=== PATIENT | female | born 1950 | race Caucasian/White ===

== ENCOUNTER → 2016-11-27 | Outpatient (REF) | payer MEDICARE, BC, OTHER ==
[~2016-11-27] MED LIST: ALDA25TA PO; ATEN25TA PO; BIOT50004 PO; CALC600T57 PO; FISH5CAP PO; FOLI1TAB2 PO; MAGN250T9 PO; MULT1TAB15 PO; OMEP40CA2 PO; OSTETAB2 PO; RED1CAP5 PO; VITA-130 PO; VITA400C2 PO
== END ==
LOC: M SFHCPLAZ 17:01
PROVIDERS: ATTEND Dermatology
DX: C44.311 Basal cell carcinoma of skin of nose (principal)

== ENCOUNTER → 2016-11-28 | Outpatient (CLI) | payer MEDICARE, BC, OTHER ==
[~2016-11-28] VITALS: Ht 160 cm; Wt 78.0 kg
[~2016-11-28] MED LIST changes: +LIDOCAINE 2% INJ 100 MG/5 ML SDV (FOR ANES.) As Ordered ONE; +NS 1,000 ML IV SCH; +PROPOFOL 500 MG/50 ML VIAL As Ordered ONE
--- NOTE | 2016-11-28 12:39 | ROOR ---
Patient Name: Elza Bunch Procedure Date: 11/28/2016 12:20 PM Date of : 1950 Age: 66 Room: [facility] Gender: Female Note Status: Finalized Procedure: Upper GI endoscopy + Balloon Dilatation Indications: Dysphagia Providers: Marbin Calzada MD Referring MD: Carl Dickerson MD Requesting Provider: Medicines: Monitored Anesthesia Care Complications: No immediate complications. Procedure: Pre-Anesthesia Assessment: - The heart rate, respiratory rate, oxygen saturations, blood pressure, adequacy of pulmonary ventilation, and response to care were monitored throughout the procedure. The Endoscope was introduced through the mouth, and advanced to the second part of duodenum. The upper GI endoscopy was accomplished without difficulty. The patient tolerated the procedure well. Findings: The Z-line was regular and was found 35 cm from the incisors. The exam of the esophagus was otherwise normal. A TTS dilator was passed through the scope. Dilation with an 18-19-20 mm balloon dilator was performed to 20 mm in the lower third of the esophagus. No other significant abnormalities were identified in a careful examination of the stomach. The exam of the duodenum was otherwise normal. Impression: - Z-line regular, 35 cm from the incisors. - Dilation performed in the lower third of the esophagus. - No specimens collected. - The examination was otherwise normal. Recommendation: - Patient has a contact number available for emergencies. The signs and symptoms of potential delayed complications were discussed with the patient. Return to normal activities tomorrow. Written discharge instructions were provided to the patient. - High fiber diet. - Continue present medications. - Follow an antireflux regimen. - Return to referring physician. - The findings and recommendations were discussed with the patient's family. Marbin Calzada MD Marbin Calzada MD 11/28/2016 12:38:34 PM This report has been signed electronically. Number of Addenda: 0 Note Initiated On: 11/28/2016 12:20 PM Estimated Blood Loss: Estimated blood loss: none.
--- NOTE | 2016-11-28 13:06 | ROOR ---
Patient Name: Elza Bunch Procedure Date: 11/28/2016 12:21 PM Date of : 1950 Age: 66 Room: [facility] Gender: Female Note Status: Finalized Procedure: Colonoscopy to Cecum + Cold Snare Polypectomy + Hemoclips Indications: Colon cancer screening in patient at increased risk: Colorectal cancer in father, High risk colon cancer surveillance: Personal history of colonic polyps, Last colonoscopy: 2011 Providers: Marbin Calzada MD Referring MD: Carl Dickerson MD Requesting Provider: Medicines: Monitored Anesthesia Care Complications: No immediate complications. Procedure: Pre-Anesthesia Assessment: - The heart rate, respiratory rate, oxygen saturations, blood pressure, adequacy of pulmonary ventilation, and response to care were monitored throughout the procedure. The Colonoscope was introduced through the anus and advanced to the cecum, identified by appendiceal orifice and ileocecal valve. The colonoscopy was performed without difficulty. The patient tolerated the procedure well. The quality of the bowel preparation was excellent. Findings: The perianal and digital rectal examinations were normal. Non-bleeding internal hemorrhoids were found during retroflexion. The hemorrhoids were small and Grade I (internal hemorrhoids that do not prolapse). A medium polyp was found at 10 cm proximal to the anus. The polyp was sessile. The polyp was removed with a cold snare. Resection and retrieval were complete. To prevent bleeding after the polypectomy, two hemostatic clips were successfully placed (MR conditional). There was no bleeding at the end of the procedure. A small polyp was found at 30 cm proximal to the anus. The polyp was sessile. The polyp was removed with a cold snare. Resection and retrieval were complete. A medium polyp was found in the mid ascending colon. The polyp was sessile. The polyp was removed with a cold snare. Resection and retrieval were complete. To prevent bleeding after the polypectomy, two hemostatic clips were successfully placed (MR conditional). There was no bleeding at the end of the procedure. The exam was otherwise without abnormality on direct and retroflexion views. Impression: - Non-bleeding internal hemorrhoids. - One medium polyp at 10 cm proximal to the anus, removed with a cold snare. Resected and retrieved. Clips (MR conditional) were placed. - One small polyp at 30 cm proximal to the anus, removed with a cold snare. Resected and retrieved. - One medium polyp in the mid ascending colon, removed with a cold snare. Resected and retrieved. Clips (MR conditional) were placed. - The examination was otherwise normal on direct and retroflexion views. - The exam was otherwise normal to the cecum. Recommendation: - Patient has a contact number available for emergencies. The signs and symptoms of potential delayed complications were discussed with the patient. Return to normal activities tomorrow. Written discharge instructions were provided to the patient. - High fiber diet. - Discharge patient to home. - Continue present medications. - Await pathology results. - Repeat colonoscopy for surveillance based on pathology results. - Return to referring physician. - Telephone GI clinic for pathology results in 1 week. - The findings and recommendations were discussed with the patient's family. Marbin Calzada MD Marbin Calzada MD 11/28/2016 1:06:17 PM This report has been signed electronically. Number of Addenda: 0 Note Initiated On: 11/28/2016 12:21 PM Estimated Blood Loss: Estimated blood loss: none.
[2016-11-28 13:33] VITALS: BP 175/92
== END ==
LOC: M OPP 11:31
PROVIDERS: ATTEND Internal Medicine Gastroenterology
DX: Z12.11 Encounter for screening for malignant neoplasm of colon (principal); Z86.010 Personal history of colon polyps; Z80.0 Family history of malignant neoplasm of digestive organs; K64.0 First degree hemorrhoids; D12.2 Benign neoplasm of ascending colon; R13.10 Dysphagia, unspecified; K21.9 Gastro-esophageal reflux disease without esophagitis; I10 Essential (primary) hypertension; Z87.891 Personal history of nicotine dependence; Z79.899 Other long term (current) drug therapy; Z91.040 Latex allergy status

== ENCOUNTER → 2016-12-05 | Outpatient (CLI) | payer MEDICARE, BC, OTHER ==
[~2016-12-05] MED LIST changes: -LIDOCAINE 2% INJ 100 MG/5 ML SDV (FOR ANES.) As Ordered ONE; -NS 1,000 ML IV SCH; -PROPOFOL 500 MG/50 ML VIAL As Ordered ONE
[2016-12-05 11:10] LABS: ANION GAP 8 MEQ/L (8-16); BLOOD UREA NITROGEN 19 MG/DL (7-18); CALCIUM LEVEL 9.9 MG/DL (8.8-10.2); CARBON DIOXIDE LEVEL 30 MEQ/L (21-32); CHLORIDE LEVEL 106 MEQ/L (98-107); CREATININE FOR GFR 0.93 MG/DL (0.55-1.02); GLOMERULAR FILTRATION RATE > 60.0 (>45); GLUCOSE, FASTING 107 MG/DL (80-110); POTASSIUM SERUM 4.5 MEQ/L (3.5-5.1); SODIUM LEVEL 144 MEQ/L (136-145)
--- NOTE | 2016-12-06 09:04 | ECGEPIP ---
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
== END ==
LOC: M LAB 10:22
PROVIDERS: ATTEND Ophthalmology
DX: H25.13 Age-related nuclear cataract, bilateral (principal)

== ENCOUNTER → 2017-02-26 | Outpatient (REF) | payer MEDICARE, OTHER | LOC: M SFHCPLAZ 10:09 | PROVIDERS: ATTEND Dermatology | DX: C44.311 Basal cell carcinoma of skin of nose (principal) ==

== ENCOUNTER → 2017-03-29 | Outpatient (REF) | payer MEDICARE, OTHER ==
[2017-03-29 14:20] LABS: ALBUMIN 3.7 GM/DL (3.2-5.2); ALBUMIN/GLOBULIN RATIO 1.54 (1.00-1.93); ALKALINE PHOSPHATASE 60 U/L (45-117); ALT/SGPT 29 U/L (12-78); ANION GAP 7 MEQ/L (8-16); AST/SGOT 18 U/L (15-37); BILIRUBIN,TOTAL 0.4 MG/DL (0.2-1.0); BLOOD UREA NITROGEN 17 MG/DL (7-18); CALCIUM LEVEL 8.7 MG/DL (8.8-10.2); CARBON DIOXIDE LEVEL 27 MEQ/L (21-32); CHLORIDE LEVEL 110 MEQ/L (98-107); CREATININE FOR GFR 0.78 MG/DL (0.55-1.02); FREE T4 1.01 NG/DL (0.76-1.46); GLOMERULAR FILTRATION RATE > 60.0 (>45); GLUCOSE, FASTING 89 MG/DL (80-110); POTASSIUM SERUM 4.2 MEQ/L (3.5-5.1); SODIUM LEVEL 144 MEQ/L (136-145); TOTAL PROTEIN 6.1 GM/DL (6.4-8.2)
[2017-03-30 09:20] LABS: CORTISOL AM 12.9 UG/DL (4.3-22.4)
[2017-04-01 10:34] LABS: ESTRADIOL < 19.0 PG/ML; FOLLICLE STIMULATING HORMONE 30.9 mIU/mL; PROGESTERONE < 0.2 NG/ML
[2017-04-02 00:06] LABS: ESTRONE SERUM 37 pg/mL (.); SEX HORMONE BINDING GLOBULIN 61.6 nmol/L (17.3-125.0)
== END ==
LOC: M LAB REF 12:57
PROVIDERS: ATTEND Obstetrics & Gynecology
DX: N95.9 Unspecified menopausal and perimenopausal disorder (principal); Z79.899 Other long term (current) drug therapy

== ENCOUNTER 2018-02-26 07:06 | Day surgery (SDC) | payer MEDICARE, BC, OTHER ==
[2018-02-26] MEDS: NS 1,000 ML IV (07:23)
[2018-02-26] MEDS ORDERED: LIDOCAINE 2% INJ 100 MG/5 ML SDV (FOR ANES.) As Ordered (08:11)
[2018-02-26] MEDS ORDERED: PROPOFOL 200 MG/20 ML VIAL As Ordered ×2 (08:11)
== END 2018-02-26 09:15 | disposition home or self-care (01) ==
LOC: M OPP 07:06
DX: Z09 Encounter for follow-up examination after completed treatment for conditions other than malignant neoplasm (principal); D49.0 Neoplasm of unspecified behavior of digestive system; D12.0 Benign neoplasm of cecum; D12.2 Benign neoplasm of ascending colon; I10 Essential (primary) hypertension; K21.9 Gastro-esophageal reflux disease without esophagitis; K64.8 Other hemorrhoids; Z86.19 Personal history of other infectious and parasitic diseases; M19.90 Unspecified osteoarthritis, unspecified site; Z78.0 Asymptomatic menopausal state; Z91.040 Latex allergy status; Z79.899 Other long term (current) drug therapy; Z80.0 Family history of malignant neoplasm of digestive organs; Z80.3 Family history of malignant neoplasm of breast; Z87.891 Personal history of nicotine dependence
CPT/HCPCS: 45380

== ENCOUNTER → 2018-04-10 | Outpatient (CLI) | payer MEDICARE, BC, OTHER ==
[2018-04-10 12:05] LABS: HEMATOCRIT 37.6 % (36.0-47.0); HEMOGLOBIN 12.5 g/dl (12.0-15.5); MEAN CORPUSCULAR HEMOGLOBIN 26.8 pg (27.0-33.0); MEAN CORPUSCULAR HGB CONC 33.2 g/dl (32.0-36.5); MEAN CORPUSCULAR VOLUME 80.7 fl (80.0-96.0); PLATELET COUNT, AUTOMATED 211 10^3/uL (150-450); RED BLOOD COUNT 4.66 10^6/uL (4.00-5.40); RED CELL DISTRIBUTION WIDTH 13.2 % (11.5-14.5); WHITE BLOOD COUNT 4.5 10^3/uL (4.0-10.0)
[2018-04-10 12:12] LABS: INR 0.92; PROTHROMBIN TIME 12.4 SECONDS (12.4-14.5)
[2018-04-10 12:24] LABS: ALBUMIN 3.9 GM/DL (3.2-5.2); ALKALINE PHOSPHATASE 65 U/L (45-117); ALT/SGPT 43 U/L (12-78); ANION GAP 8 MEQ/L (8-16); AST/SGOT 25 U/L (7-37); BILIRUBIN,TOTAL 0.6 MG/DL (0.2-1.0); BLOOD UREA NITROGEN 14 MG/DL (7-18); CALCIUM LEVEL 9.4 MG/DL (8.8-10.2); CARBON DIOXIDE LEVEL 28 MEQ/L (21-32); CHLORIDE LEVEL 108 MEQ/L (98-107); CREATININE FOR GFR 0.75 MG/DL (0.55-1.30); GLOMERULAR FILTRATION RATE > 60.0 (>45); GLUCOSE, FASTING 97 MG/DL (70-100); SODIUM LEVEL 144 MEQ/L (136-145); TOTAL PROTEIN 6.9 GM/DL (6.4-8.2)
[2018-04-10 12:34] LABS: ERYTHROCYTE SEDIMENTATION RATE 16 mm/hr (0-30)
== END ==
LOC: M ADMPAT 10:06
DX: Z01.818 Encounter for other preprocedural examination (principal); M17.11 Unilateral primary osteoarthritis, right knee
CPT/HCPCS: 71046

== ENCOUNTER 2019-06-21 15:08 | Observation (INO) | payer MEDICARE, BC, OTHER ==
[~2019-06-21] VITALS: Ht 160 cm; Wt 69.3 kg
[~2019-06-21 15:08] MED LIST changes: -ALDA25TA PO; +FOLI1TAB11 PO; -FOLI1TAB2 PO; +MS C15TA8 PO; -OMEP40CA2 PO; +OMEP40CA97 PO; +PERC5TAB12 PO; +SPIR1TAB34 PO; -VITA-130 PO; -VITA400C2 PO; +VITA400C7 PO; +VITA500T PO; +XARE10TA PO; +ZOFR4TAB14 PO
[2019-06-21] MEDS ORDERED: VENL37.598 PO (15:35)
[2019-06-21] MEDS ORDERED: ATOR1TAB19 PO (15:35)
--- NOTE | 2019-06-21 15:46 | REP ---
Clinical: Syncope/Near-syncopal episode. Comparison: 04/10/2018. Findings: The mediastinum and cardiac silhouette are stable and within normal limits for portable technique. The lung fraser are clear without acute consolidation, effusion, or pneumothorax. Skeletal structures are intact. Impression: No acute cardiopulmonary process appreciated. Electronically Signed by Alex Andrew MD 06/21/2019 03:38 P
--- NOTE | 2019-06-21 15:52 | REP ---
Clinical: Trauma/fall . Comparison: None . Findings: The ventricles, sulci, and cisterns are normal in position and appearance. Duke-white differentiation is maintained. No acute intracranial hemorrhage, mass/mass effect, pathology or trauma/injury. No evidence for acute infarction. No extra-axial fluid collection. Calvarium is intact. Paranasal sinuses and mastoid air cells are clear. Impression: Normal noncontrast head CT. No evidence for acute intracranial pathology or trauma/injury. Electronically Signed by Alex Andrew MD 06/21/2019 03:44 P
[2019-06-21 15:54] LABS: BASO % 0.8 % (0.0-1.0); EOS # 0.1 10^3/uL (0.0-0.5); EOS % 1.8 % (0.0-3.0); HEMATOCRIT 40.3 % (36.0-47.0); HEMOGLOBIN 13.5 g/dl (12.0-15.5); LYMPH # 1.6 10^3/uL (1.5-5.0); LYMPH % 32.6 % (24.0-44.0); MEAN CORPUSCULAR HEMOGLOBIN 27.7 pg (27.0-33.0); MEAN CORPUSCULAR HGB CONC 33.5 g/dl (32.0-36.5); MEAN CORPUSCULAR VOLUME 82.6 fl (80.0-96.0); MONO # 0.4 10^3/uL (0.0-0.8); MONO % 8.2 % (0.0-5.0); NEUTROPHILS # 2.8 10^3/uL (1.5-8.5); NEUTROPHILS % 56.4 % (36.0-66.0); PLATELET COUNT, AUTOMATED 176 10^3/uL (150-450); RED BLOOD COUNT 4.88 10^6/uL (4.00-5.40); WHITE BLOOD COUNT 4.9 10^3/uL (4.0-10.0)
[2019-06-21 16:04] LABS: INR 0.9; PROTHROMBIN TIME 11.9 SECONDS (11.8-14.0)
[2019-06-21 16:05] LABS: PARTIAL THROMBOPLASTIN TIME 28.7 SECONDS (25.0-38.4)
[2019-06-21] MEDS ORDERED: ISOVUE-370 76% 100ML VIAL (Q9967) As Ordered ONE (16:09)
[2019-06-21 16:39] LABS: CK-MB VALUE MASS < 1.0 NG/ML (<3.6); CPK CREATINE PHOSPHOKINASE 22 U/L (26-192); MB/CK RELATIVE INDEX 4.55 (< OR =4); TROPONIN I < 0.02 NG/ML (< 0.10)
--- NOTE | 2019-06-21 16:39 | REP ---
Clinical: Acute chest pain. Technique: Axial contrast enhanced images from the thoracic inlet to the upper abdomen using 100 ml Isovue 370 intravenous contrast material with coronal and sagittal re-formations. Findings: Satisfactory enhancement of the pulmonary vasculature is achieved and no filling defects are identified to suggest pulmonary embolus. Thoracic aorta is normal caliber without aneurysm or dissection. Heart and pericardium are normal. Bilateral lung fraser are well aerated and clear without acute pulmonary parenchymal consolidation or atelectasis. No pleural effusion/reaction. No pneumothorax. No adenopathy. Impression: No evidence for pulmonary embolus. No acute pleuroparenchymal or mediastinal process. Electronically Signed by Alex Andrew MD 06/21/2019 04:31 P
[2019-06-21] MEDS ORDERED: LABETALOL HCL 100 MG/20 ML VIAL IV STA (16:53)
[2019-06-21] MEDS ORDERED: ATEN50TA2 PO (17:32)
[2019-06-21] MEDS ORDERED: MULTCAP PO (17:33)
[2019-06-21] MEDS ORDERED: VITA-183 PO (17:33)
[2019-06-21] MEDS ORDERED: VITA100018 PO (17:33)
[2019-06-21] MEDS ORDERED: VITA500T11 PO (17:36)
[2019-06-21] MEDS ORDERED: LABETALOL HCL 100 MG/20 ML VIAL IV PRN (17:45)
--- NOTE | 2019-06-21 18:18 | HPEPDOC ---
General Date of Admission 06/21/19 Date of Service: Jun 21, 2019 Primary Care Physician: NINOSKA SEARS MD [facility] Attending Physician: RIMMA HUGHES DO Chief Complaint The patient is a 69-year-old female admitted with a reason for visit of Syncope. Source: Patient, Family Exam Limitations: No limitations Timing/Duration: 1-3 hours, 4-6 hours Severity: Mild Associated Symptoms: Malaise, Weakness History of Present Illness Patient is 69 years old female with past medical history of hypertension, GERD, depression presented hospital after syncope. According to the family syncope was witnessed, patient did not have any prodrome before she fell on the ground. She lost consciousness for 5-7 seconds. She regained consciousness, she was not co nfused, but she stated that she was very weak and sweaty. Patient noticed that before syncope she had had palpitations. Of note, recently patient started the new medication Effexor, she noticed that after starting Effexor she started having frequent palpitations. Patient stated that she had intermittent palpitations for few years, but she never developed syncope before. In ER head CT was done and it was negative for acute bleed. BMP did not show profound electrolytes abnormalities. Patient didn't have any diarrhea or vomiting recently, she was not dehydrated. Patient denies fever, chills, nausea, chest pain, shortness of breath, diarrhea or dysuria. Home Medications Scheduled Ascorbic Acid (Vitamin C) 500 Mg Tablet, 1,000 MG PO DAILY, (Reported) Atenolol (Atenolol) 50 Mg Tablet, 50 MG PO DAILY, (Reported) Atorvastatin Calcium (Atorvastatin Calcium) 10 Mg Tablet, 10 MG PO DAILY, (Reported) Cholecalciferol (Vitamin D3) (Vitamin D3) 1,000 Unit Capsule, 1,000 UNIT PO DAILY, (Reported) Cyanocobalamin (Vitamin B-12) (Vitamin B-12) 1,000 Mcg Tablet, 1,000 MCG PO DAILY, (Reported) Multivitamin (Multivitamins) 1 Each Capsule, 1 CAP PO DAILY, (Reported) Omeprazole (Omeprazole) 40 Mg Cap, 40 MG PO DAILY, (Reported) Spironolact/Hydrochlorothiazid (Spironolactone-Hctz 25-25 Tab) 1 Ea Tab, 1 TAB PO DAILY, (Reported) Venlafaxine HCl (Venlafaxine HCl ER) 37.5 Mg Cap.er.24h, 37.5 MG PO DAILY, (Reported) Allergies Coded Allergies: latex (Verified Allergy, Unknown, rash/blister, 06/21/19) Past Medical History Medical History Hypertension, depression, GERD Family History Father -COPD Mother-heart attack Social History * Smoker: Denies Alcohol: occationally Drugs: denies Psychosocial History: No pertinent psych hx A-FIB/CHADSVASC A-FIB History Current/History of A-Fib/PAF?: No Current PO Anticoag Therapy: No Review of Systems Constitutional: Reports: Weakness Eyes: Denies: Pain, Vision change ENT: Denies: Head Aches, Ear Pain, Dysphagia, Sinus Congestion Skin: Denies: Rash, Lesions Pulmonary: Denies: Dyspnea, Cough Cardiovascular: Reports: Palpitations; Denies: Chest Pain Gastrointestinal: Denies: Nausea, Vomiting, Abdominal Pain Genitourinary: Denies: Dysuria, Frequency Hematologic: Denies: Bruising, Bleeding Excessively, Petecchia Endocrine: Denies: Polydipsia, Polyphagia, Polyuria Musculoskeletal: Denies: Neck Pain Neurological: Denies: Weakness, Change in speech, Seizures Psych: Reports: Mood Normal Physical Examination General Exam: Positive: Alert, Cooperative, Mild Distress Eye Exam: Positive: PERRLA, Conjunctiva & lids normal ENT Exam: Negative: Atraumatic Neck Exam: Positive: Supple; Negative: JVD Chest Exam: Positive: Clear to auscultation Heart Exam: Positive: Regular Rhythm Telemetry: Positive: No significant arrhythmia Abdomen Exam: Positive: Normal bowel sounds Extremity Exam: Negative: Clubbing, Cyanosis Skin Exam: Negative: Rash Neuro Exam: Positive: Normal Gait, Strength at 5/5 X4 ext, Cranial Nerves 3-12 NL Psych Exam: Positive: Mental status NL Vital Signs Vital Signs Date Time Temp Pulse Resp B/P (MAP) Pulse Ox O2 Delivery O2 Flow Rate FiO2 06/21/19 16:01 06/21/19 16:01 83 84 95 06/21/19 15:08 98.7 22 100 Room Air Laboratory Data Labs 24H Laboratory Tests 2 06/21/19 15:45: Immature Granulocyte % (Auto) 0.2, White Blood Count 4.9, Red Blood Count 4.88, Hemoglobin 13.5, Hematocrit 40.3, Mean Corpuscular Volume 82.6, Mean Corpuscular Hemoglobin 27.7, Mean Corpuscular Hemoglobin Concent 33.5, Red Cell Distribution Width 13.2, Platelet Count 176, Neutrophils (%) (Auto) 56.4, Lymphocytes (%) (Auto) 32.6, Monocytes (%) (Auto) 8.2H, Eosinophils (%) (Auto) 1.8, Basophils (%) (Auto) 0.8, Neutrophils # (Auto) 2.8, Lymphocytes # (Auto) 1.6, Monocytes # (Auto) 0.4, Eosinophils # (Auto) 0.1, Basophils # (Auto) 0.0, Nucleated Red Blood Cells % (auto) 0.0, Prothrombin Time 11.9, Prothromb Time International Ratio 0.90, Activated Partial Thromboplast Time 28.7, Urine Color STRAW, Urine Appearance CLEAR, Urine pH 7.0, Urine Specific [place] 1.004, Urine Protein NEGATIVE, Urine Glucose (UA) NEGATIVE, Urine Ketones NEGATIVE, Urine Blood NEGATIVE, Urine Nitrite NEGATIVE, Urine Bilirubin NEGATIVE, Urine Urobilinogen 0.2, Urine Leukocyte Esterase NEGATIVE, Urine WBC (Auto) 1, Urine RBC (Auto) 4H, Urine Hyaline Casts (Auto) 0, Urine Bacteria (Auto) NEGATIVE, Urine Squamous Epithelial Cells 0, Urine Sperm (Auto) , Magnesium Level 2.0, Total Creatine Kinase 22L, Creatine Kinase MB < 1.0, Creatine Kinase MB Relative Index 4.55H, Troponin I < 0.02, Thyroid Stimulating Hormone (TSH) 1.970 06/21/19 15:47: POC Glucose (Misc Panel) 118H, POC Sodium (Misc Panel) 141, POC Potassium (Misc Panel) 3.4L, POC Chloride (Misc Panel) 102, POC Total CO2 (Misc Panel) 24.0, POC Blood Urea Nitrogen (Misc Panel 8, POC Ionized Calcium (Misc Panel) 4.8, POC Creatinine (Misc Panel) 0.8, POC Hematocrit (Misc Panel) 38.0 CBC/BMP Laboratory Tests 06/21/19 15:45 Red Blood Count 4.88, Mean Corpuscular Volume 82.6, Mean Corpuscular Hemoglobin 27.7, Mean Corpuscular Hemoglobin Concent 33.5, Red Cell Distribution Width 13.2, Neutrophils (%) (Auto) 56.4, Lymphocytes (%) (Auto) 32.6, Monocytes (%) (Auto) 8.2 H, Eosinophils (%) (Auto) 1.8, Basophils (%) (Auto) 0.8, Neutrophils # (Auto) 2.8, Lymphocytes # (Auto) 1.6, Monocytes # (Auto) 0.4, Eosinophils # (Auto) 0.1, Basophils # (Auto) 0.0 Assessment/Plan Patient is 69 years old female with past medical history of hypertension, GERD, depression presented hospital after syncope. According to the family syncope was witnessed, patient did not have any prodrome before she fell on the ground. She lost consciousness for 5-7 seconds. She regained consciousness, she was not confused, but she stated that she was very weak and sweaty. Patient noticed that before syncope she had had palpitations. Of note, recently patient started the new medications Effexor, she noticed that after starting Effexor she started having frequent palpitations. Patient stated that she had intermittent palpitations for a few years, but she never developed syncope before. In ER head CT was done and it was negative for acute bleed. BMP did not show profound electrolytes abnormalities. Patient didn't have any diarrhea or vomiting recently, she was not dehydrated. Patient denies fever, chills, nausea, chest pain, shortness of breath, diarrhea or dysuria. 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 Also patient has a history of frequent palpitations Unlikely patient developed seizures given no shakiness of the body or confusion or urinary or fecal incontinence Will check TSH, echo, telemetry, EKG Most likely patient will need Holter monitor for 30 days to r/o a-fib if in-hos pital workup do not reveal the cause of syncope (2) Palpitations Status: Acute Problem Text: see above Plan / VTE VTE Prophylaxis Ordered?: Yes Plan Diet: Continue Current RIMMA HUGHES DO Jun 21, 2019 18:18
--- NOTE | 2019-06-21 19:06 | ECGEPIP ---
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
[2019-06-21 20:30] VITALS: BP 152/92
[2019-06-21] MEDS: HEPARIN SOD (PORCINE) 5000 UNITS/ML VIAL SC SCH (22:43)
[2019-06-22 06:00] VITALS: BP_SYST 120; BP_SYST 126; BP_SYST 127; BP_DIAS 67; BP_DIAS 72
[2019-06-22 07:03] LABS: HEMATOCRIT 39.6 % (36.0-47.0); HEMOGLOBIN 12.7 g/dl (12.0-15.5); MEAN CORPUSCULAR HEMOGLOBIN 26.9 pg (27.0-33.0); MEAN CORPUSCULAR HGB CONC 32.1 g/dl (32.0-36.5); MEAN CORPUSCULAR VOLUME 83.9 fl (80.0-96.0); PLATELET COUNT, AUTOMATED 164 10^3/uL (150-450); RED BLOOD COUNT 4.72 10^6/uL (4.00-5.40); WHITE BLOOD COUNT 3.7 10^3/uL (4.0-10.0)
[2019-06-22 07:36] LABS: BLOOD UREA NITROGEN 12 MG/DL (7-18); CALCIUM LEVEL 9.6 MG/DL (8.8-10.2); CARBON DIOXIDE LEVEL 29 MEQ/L (21-32); CHLORIDE LEVEL 107 MEQ/L (98-107); CREATININE FOR GFR 0.94 MG/DL (0.55-1.30); GLOMERULAR FILTRATION RATE > 60.0 (>45); GLUCOSE, FASTING 111 MG/DL (70-100); POTASSIUM SERUM 4.2 MEQ/L (3.5-5.1); SODIUM LEVEL 140 MEQ/L (136-145)
[2019-06-22] MEDS: OMEPRAZOLE 20 MG CAP PO SCH (08:33)
[2019-06-22] MEDS: ATORVASTATIN 10 MG TAB PO SCH (08:33)
[2019-06-22] MEDS: hydroCHLOROthiazide 25 MG TAB PO SCH (08:33)
[2019-06-22] MEDS: HEPARIN SOD (PORCINE) 5000 UNITS/ML VIAL SC SCH ×2 (08:34→20:37)
[2019-06-22] MEDS: VITAMIN D 1,000 INTERNATIONAL UNITS TABLET PO SCH (08:34)
[2019-06-22] MEDS: SPIRONOLACTONE 25 MG TAB PO SCH (08:34)
[2019-06-22] MEDS: CYANOCOBALAMIN 500 MCG TAB PO SCH (08:34)
[2019-06-22] MEDS: atenoloL 50 MG TAB PO SCH (08:36)
[2019-06-22 14:00] VITALS: BP 137/76
[2019-06-22] MEDS: ACETAMINOPHEN TAB 650MG DOSE (2X325MG) PO PRN ×2 (15:05→21:14)
--- NOTE | 2019-06-22 18:14 | IPNPDOC ---
Text Note Date of Service The patient was seen on 06/22/19. NOTE Subjective: Patient states that overnight she had a few episodes of palpitatio ns, also associated with weakness. Patient denies fever, chills, nausea, vomiting, chest pain, shortness of breath, diarrhea or dysuria Objective: Physical Examination General Exam: Positive: Alert, Cooperative, Mild Distress Eye Exam: Positive: PERRLA, Conjunctiva & lids normal ENT Exam: Negative: Atraumatic Neck Exam: Positive: Supple; Negative: JVD Chest Exam: Positive: Clear to auscultation Heart Exam: Positive: Regular Rhythm Telemetry: Positive: No significant arrhythmia Abdomen Exam: Positive: Normal bowel sounds Extremity Exam: Negative: Clubbing, Cyanosis Skin Exam: Negative: Rash Neuro Exam: Positive: Normal Gait, Strength at 5/5 X4 ext, Cranial Nerves 3-12 NL Patient is 69 years old female with past medical history of hypertension, GERD, depression presented hospital after syncope. According to the family syncope was witnessed, patient did not have any prodrome before she fell on the ground. She lost consciousness for 5-7 seconds. She regained consciousness, she was not confused, but she stated that she was very weak and sweaty. Patient noticed that before syncope she had had palpitations. Of note, recently patient started the new medications Effexor, she noticed that after starting Effexor she started having frequent palpitations. Patient stated that she had intermittent palpitations for a few years, but she never developed syncope before. In ER head CT was done and it was negative for acute bleed. BMP did not show profound electrolytes abnormalities. Patient didn't have any diarrhea or vomiting recently, she was not dehydrated. 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 Patient has anxiety which could increase sympathetic tone. Also patient has a history of frequent palpitations, that is concerning for atrial fibrillation. dc Effexor which could potentially contribute to exacerbations of palpitation and syncope On telemetry sinus rhythm overnight EKG unremarkable TSH within normal limit Echo pending EEG ordered for completion workup Unlikely patient developed seizures given no shakiness of the body or confusion or urinary or fecal incontinence Most likely patient will need Holter monitor for 30 days to r/o a-fib if in- hospital workup do not reveal the cause of syncope (2) Palpitations Status: Acute Problem Text: see above VS,Tika, I+O VS, Tika, I+O Laboratory Tests 06/22/19 06:46 Red Blood Count 4.72, Mean Corpuscular Volume 83.9, Mean Corpuscular Hemoglobin 26.9 L, Mean Corpuscular Hemoglobin Concent 32.1, Red Cell Distribution Width 13.2, Calcium Level 9.6 Vital Signs Date Time Temp Pulse Resp B/P (MAP) Pulse Ox O2 Delivery O2 Flow Rate FiO2 06/22/19 14:00 98.5 67 19 137/76 (96) 96 06/21/19 19:46 Room Air I&O- Last 24 Hours up to 6 AM 06/22/19 06:00 Intake Total 360 ml Balance 360 ml RIMMA HUGHES DO Jun 22, 2019 18:14
--- NOTE | 2019-06-22 21:48 | ECGEPIP ---
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 Possible old inferior wall myocardial infarct. Decrease heart rate compared with 06/21/2019. Electronically Signed on 06-22-2019 21:48:06 EDT by Kiran Smith
[2019-06-22 22:00] VITALS: BP 114/63
[2019-06-22 23:10] VITALS: BP_SYST 105; BP_SYST 106; BP_SYST 117; BP_DIAS 60; BP_DIAS 63; BP_DIAS 71
[2019-06-23] MEDS: ACETAMINOPHEN TAB 650MG DOSE (2X325MG) PO PRN (04:48)
[2019-06-23 06:00] VITALS: BP 131/65
[2019-06-23 06:04] VITALS: BP_SYST 120; BP_SYST 123; BP_SYST 124; BP_DIAS 70; BP_DIAS 71; BP_DIAS 78
[2019-06-23 07:04] LABS: HEMOGLOBIN 12.6 g/dl (12.0-15.5); MEAN CORPUSCULAR HEMOGLOBIN 27.2 pg (27.0-33.0); MEAN CORPUSCULAR HGB CONC 32.3 g/dl (32.0-36.5); MEAN CORPUSCULAR VOLUME 84.1 fl (80.0-96.0); PLATELET COUNT, AUTOMATED 165 10^3/uL (150-450); RED BLOOD COUNT 4.64 10^6/uL (4.00-5.40); WHITE BLOOD COUNT 3.2 10^3/uL (4.0-10.0)
[2019-06-23 07:33] LABS: BLOOD UREA NITROGEN 19 MG/DL (7-18); CALCIUM LEVEL 9.5 MG/DL (8.8-10.2); CARBON DIOXIDE LEVEL 28 MEQ/L (21-32); CHLORIDE LEVEL 107 MEQ/L (98-107); CREATININE FOR GFR 0.86 MG/DL (0.55-1.30); GLOMERULAR FILTRATION RATE > 60.0 (>45); GLUCOSE, FASTING 102 MG/DL (70-100); POTASSIUM SERUM 3.6 MEQ/L (3.5-5.1); SODIUM LEVEL 142 MEQ/L (136-145)
[2019-06-23] MEDS: ATORVASTATIN 10 MG TAB PO SCH (08:38)
[2019-06-23] MEDS: SPIRONOLACTONE 25 MG TAB PO SCH (08:38)
[2019-06-23] MEDS: OMEPRAZOLE 20 MG CAP PO SCH (08:38)
[2019-06-23] MEDS: atenoloL 50 MG TAB PO SCH (08:38)
[2019-06-23] MEDS: VITAMIN D 1,000 INTERNATIONAL UNITS TABLET PO SCH (08:38)
[2019-06-23] MEDS: CYANOCOBALAMIN 500 MCG TAB PO SCH (08:39)
[2019-06-23] MEDS: HEPARIN SOD (PORCINE) 5000 UNITS/ML VIAL SC SCH ×2 (08:39→20:22)
[2019-06-23] MEDS: hydroCHLOROthiazide 25 MG TAB PO SCH (08:39)
[2019-06-23 10:20] VITALS: BP_SYST 134; BP_SYST 138; BP_SYST 140; BP_DIAS 78; BP_DIAS 80; BP_DIAS 83
[2019-06-23 14:00] VITALS: BP 135/78
--- NOTE | 2019-06-23 16:42 | ECHO ---
DATE OF PROCEDURE: 06/23/2019 REFERRING PHYSICIAN: Fish Lazo MD INDICATION: Syncope. HEIGHT: 160 cm WEIGHT: 74 kg 2D MEASUREMENTS: Left atrium: 3.9 cm Aortic root: 2.9 cm Left ventricle diastole: 4.4 cm Ventricular septum: 0.90 cm Posterior wall: 0.94 cm Aortic annulus: 2.0 cm Inferior vena cava: 1.7 cm DOPPLER MEASUREMENTS: Aortic valve velocity: 109 cm/s LVOT velocity: 73.9 cm/s Mitral E velocity: 5.38 cm/s Mitral A velocity: 65.5 cm/s Mitral deceleration time: 377 ms Very mild tricuspid regurgitation. Estimated right ventricle systolic pressure 24 mmHg assuming a right atrial pressure of 5 mmHg. Pulmonary acceleration time 169 ms MITRAL ANNULAR TISSUE DOPPLER: E prime septal: 4.9 cm/s E prime lateral: 6.6 cm/s DESCRIPTION: Rhythm was predominantly sinus bradycardia. This was a 2D, M-mode, color flow Doppler and pulse wave Doppler examination that included mitral annular tissue Doppler. Image quality was good. CONCLUSIONS: 1. Normal left ventricle internal dimensions and wall thickness. Normal regional left ventricle (LV) wall motion and wall thickening. Left ventricular ejection fraction (LVEF) of 63% (3D). 2. Mild left atrial dilatation. 3. Grade 1 left ventricle (LV) diastolic dysfunction (impaired relaxation filling pattern). 4. Otherwise normal appearing echocardiogram Doppler findings.
--- NOTE | 2019-06-23 19:44 | IPNPDOC ---
Text Note Date of Service The patient was seen on 06/23/19. NOTE Subjective: No any acute events overnight. Patient denies fever, chills, nausea, vomiting, chest pain, shortness of breath, diarrhea or dysuria Objective: Physical Examination General Exam: Positive: Alert, Cooperative, Mild Distress Eye Exam: Positive: PERRLA, Conjunctiva & lids normal ENT Exam: Negative: Atraumatic Neck Exam: Positive: Supple; Negative: JVD Chest Exam: Positive: Clear to auscultation Heart Exam: Positive: Regular Rhythm Telemetry: Positive: No significant arrhythmia Abdomen Exam: Positive: Normal bowel sounds Extremity Exam: Negative: Clubbing, Cyanosis Skin Exam: Negative: Rash Neuro Exam: Positive: Normal Gait, Strength at 5/5 X4 ext, Cranial Nerves 3-12 NL Patient is 69 years old female with past medical history of hypertension, GERD, depression presented hospital after syncope. According to the family syncope was witnessed, patient did not have any prodrome before she fell on the ground. She lost consciousness for 5-7 seconds. She regained consciousness, she was not confused, but she stated that she was very weak and sweaty. Patient noticed that before syncope she had had palpitations. Of note, recently patient started the new medications Effexor, she noticed that after starting Effexor she started having frequent palpitations. Effexor could potentially contribute to exacerbations of palpitation and syncope. Patient stated that she had intermittent palpitations for a few years, but she never developed syncope before. In ER head CT was done and it was negative for acute bleed. BMP did not show profound electrolytes abnormalities. Patient didn't have any diarrhea or vomiting recently, she was not dehydrated. During hospital stay telemetry showed sinus rhythm, EKG showed sinus rhythm. Echo was done and it was negative for valves defect. Anticipated discharge on 06/24/19. Follow-up with business intelligence consultant Dr. Yousif (1) Syncope Most likely patient developed neurocardiogenic syncope. Patient has anxiety which could increase sympathetic tone. Also patient has a history of frequent palpitations, that is concerning for atrial fibrillation. dc Effexor which could potentially contribute to exacerbations of palpitation a nd syncope On telemetry sinus rhythm overnight EKG unremarkable TSH within normal limit Echo unremarkable EEG pending official result Unlikely patient developed seizures given no shakiness of the body or confusion or urinary or fecal incontinence Most likely patient will need Holter monitor for 30 days to r/o a-fib if in- hospital workup do not reveal the cause of syncope Follow-up with Dr. Yousif (2) Palpitations Status: Acute Problem Text: see above VS,Tika, I+O VS, Tika, I+O Laboratory Tests 06/23/19 06:30 Red Blood Count 4.64, Mean Corpuscular Volume 84.1, Mean Corpuscular Hemoglobin 27.2, Mean Corpuscular Hemoglobin Concent 32.3, Red Cell Distribution Width 13.4, Calcium Level 9.5 Vital Signs Date Time Temp Pulse Resp B/P (MAP) Pulse Ox O2 Delivery O2 Flow Rate FiO2 06/23/19 14:00 97.8 66 17 135/78 (97) 97 06/21/19 19:46 Room Air I&O- Last 24 Hours up to 6 AM 06/23/19 05:59 Intake Total 1320 ml Balance 1320 ml RIMMA HUGHES DO Jun 23, 2019 19:43
[2019-06-23 22:00] VITALS: BP 144/75
[2019-06-23 22:20] VITALS: BP_SYST 134; BP_SYST 138; BP_SYST 140; BP_DIAS 78; BP_DIAS 80; BP_DIAS 83
--- NOTE | 2019-06-24 00:11 | EEG ---
DATE OF PROCEDURE: 06/21/2019 REFERRING PHYSICIAN: Dr. Fish Lazo DIAGNOSIS: Syncope. EEG NUMBER: [id number] HISTORY: The patient is a 69-year-old woman who was admitted at [facility] due to passing out spell. She is currently taking atenolol, Lipitor, spironolactone, labetalol, vitamin B12, and D. TECHNICAL DESCRIPTION: This digital EEG was recorded by 21 scalp, ear and two EKG electrodes and was reviewed in bipolar and referential montages following reformatting in 10-20 international electrode placement system. INTERPRETATION: The patient was noted to be in awake and drowsy states during this EEG. Resting awake background rhythm consisted of well-formed posterior dominant rhythm with anterior/posterior gradient comprising of 12 Hz alpha activity measuring 15-50 microvolts in amplitude. It was symmetric and reactive to eye opening. Anteriorly low voltage and mixed frequency activity was noted. Attenuation of posterior dominant rhythm was seen during transition into drowsiness. Stage I and II sleep were reviewed and were symmetric bilaterally. Hyperventilation could not performed. Photic stimulation at 3-30 Hz elicited symmetric photic driving, especially at mid frequencies. EKG revealed normal sinus rhythm. No focal, lateralizing or epileptiform abnormalities were seen. No relevant clinical activity was noted. CONCLUSION: This EEG in awake, drowsy states, stage I and II sleep is within normal limits.
[2019-06-24 06:00] VITALS: BP 128/69
[2019-06-24 06:04] LABS: HEMOGLOBIN 12.9 g/dl (12.0-15.5); MEAN CORPUSCULAR HEMOGLOBIN 27.5 pg (27.0-33.0); MEAN CORPUSCULAR HGB CONC 33.1 g/dl (32.0-36.5); MEAN CORPUSCULAR VOLUME 83.2 fl (80.0-96.0); PLATELET COUNT, AUTOMATED 164 10^3/uL (150-450); RED BLOOD COUNT 4.69 10^6/uL (4.00-5.40)
[2019-06-24 06:15] LABS: BLOOD UREA NITROGEN 18 MG/DL (7-18); CALCIUM LEVEL 9.3 MG/DL (8.8-10.2); CARBON DIOXIDE LEVEL 25 MEQ/L (21-32); CHLORIDE LEVEL 108 MEQ/L (98-107); CREATININE FOR GFR 0.88 MG/DL (0.55-1.30); GLOMERULAR FILTRATION RATE > 60.0 (>45); GLUCOSE, FASTING 102 MG/DL (70-100); POTASSIUM SERUM 3.5 MEQ/L (3.5-5.1); SODIUM LEVEL 140 MEQ/L (136-145)
[2019-06-24 06:30] VITALS: BP_SYST 115; BP_SYST 127; BP_SYST 132; BP_DIAS 67; BP_DIAS 75
[2019-06-24 08:23] VITALS: BP 119/75
[2019-06-24] MEDS: ATORVASTATIN 10 MG TAB PO SCH (08:23)
[2019-06-24] MEDS: OMEPRAZOLE 20 MG CAP PO SCH (08:23)
[2019-06-24] MEDS: atenoloL 50 MG TAB PO SCH (08:23)
[2019-06-24] MEDS: SPIRONOLACTONE 25 MG TAB PO SCH (08:23)
[2019-06-24] MEDS: CYANOCOBALAMIN 500 MCG TAB PO SCH (08:23)
[2019-06-24] MEDS: VITAMIN D 1,000 INTERNATIONAL UNITS TABLET PO SCH (08:23)
[2019-06-24] MEDS: hydroCHLOROthiazide 25 MG TAB PO SCH (08:23)
[2019-06-24] MEDS: HEPARIN SOD (PORCINE) 5000 UNITS/ML VIAL SC SCH (08:24)
--- NOTE | 2019-06-24 13:44 | DS.PDOC ---
Discharge Summary General Date of Admission Jun 21, 2019 at 15:09 Date of Discharge 06/24/19 Discharge Summary PROCEDURES PERFORMED DURING STAY: None. ADMITTING DIAGNOSES: 1. , Palpitations, anxiety disorder, depression, syncope. DISCHARGE DIAGNOSES: 1. , Palpitations, anxiety disorder, depression, syncope. COMPLICATIONS/CHIEF COMPLAINT: Syncope, Palpitations. HISTORY OF PRESENT ILLNESS: Patient is 69 years old female with past medical history of hypertension, GERD, depression presented hospital after syncope. According to the family syncope was witnessed, patient did not have any prodrome before she fell on the ground. She lost consciousness for 5-7 seconds. She regained consciousness, she was not confused, but she stated that she was very weak and sweaty. Patient noticed that before syncope she had had palpitations. Of note, recently patient started the new medication Effexor, she noticed that after starting Effexor she started having frequent palpitations. Patient stated that she had intermittent palpitations for few years, but she never developed syncope before. In ER head CT was done and it was negative for acute bleed. BMP did not show profound electrolytes abnormalities. Patient didn't have any diarrhea or vomiting recently, she was not dehydrated. Patient denies fever, chills, nausea, chest pain, shortness of breath, diarrhea or dysuria.. HOSPITAL COURSE: [Patient is 69 years old female with past medical history of hypertension, GERD, depression presented hospital after syncope. According to the family syncope was witnessed, patient did not have any prodrome before she fell on the ground. She lost consciousness for 5-7 seconds. She regained consciousness, she was not confused, but she stated that she was very weak and sweaty. Patient noticed that before syncope she had had palpitations. Of note, recently patient started the new medications Effexor, she noticed that after starting Effexor she started having frequent palpitations. Effexor could potentially contribute to exacerbations of palpitation and syncope. Patient stated that she had intermittent palpitations for a few years, but she never developed syncope before. In ER head CT was done and it was negative for acute bleed. BMP did not show profound electrolytes abnormalities. Patient didn't have any diarrhea or vomiting recently, she was not dehydrated. During hospital stay telemetry showed sinus rhythm, EKG showed sinus rhythm. Echo was done and it was negative for valves defect. Anticipated discharge on 06/24/19. Follow-up with dental laboratory supervisor Dr. Mullins Syncope: Most likely patient developed neurocardiogenic syncope. Patient has anxiety which could increase sympathetic tone. Also patient has a history of frequent palpitations, that is concerning for atrial fibrillation. dc Effexor which could potentially contribute to exacerbations of palpitation and syncope On telemetry sinus rhythm overnight EKG unremarkable TSH within normal limit Echo unremarkable EEG pending official result Unlikely patient developed seizures given no shakiness of the body or confusion or urinary or fecal incontinence Most likely patient will need Holter monitor for 30 days to r/o a-fib if in- hospital workup do not reveal the cause of syncope Follow-up with Dr. Yousif Regarding palpitations Palpitations No evidence of any acute arrhythmia on panel instrument repairer, all workup is negative . She'll will follow with Dr. Yousif for outpatient Holter monitoring and further workup as deemed necessary by him DISCHARGE MEDICATIONS: Please see below. ALLERGIES: Please see below. PHYSICAL EXAMINATION ON DISCHARGE: VITAL SIGNS: Please see below. GENERAL: Within normal limits HEENT: PERRLA NECK: Supple CARDIOVASCULAR EXAMINATION: S1, S2, regular RESPIRATORY EXAMINATION: Clear to A&P ABDOMINAL EXAMINATION: Benign EXTREMITIES: No clubbing, cyanosis, edema SKIN: Within normal limits NEUROLOGICAL EXAMINATION: No focal motor sensory deficit PSYCHIATRIC EXAMINATION: Normal LABORATORY DATA: Please see below. IMAGING: . CTA chestImpression: No evidence for pulmonary embolus. No acute pleuroparenchymal or mediastinal process.: PROGNOSIS: Good ACTIVITY: As tolerated. DIET: As tolerated DISCHARGE PLAN: Follow with PCP in one week DISPOSITION: 01 Home, Self-Care. DISCHARGE INSTRUCTIONS: 1. As per discharge instructions. ITEMS TO FOLLOWUP ON ON OUTPATIENT: 1. Follow with PCP in one week. DISCHARGE CONDITION: Stable. TIME SPENT ON DISCHARGE: 28 minutes. Vital Signs/I&Os Vital Signs Date Time Temp Pulse Resp B/P (MAP) Pulse Ox O2 Delivery O2 Flow Rate FiO2 06/24/19 08:23 65 119/75 06/24/19 06:00 97.4 19 95 06/21/19 19:46 Room Air I&O- Last 24 Hours up to 6 AM 06/24/19 06:00 Intake Total 1236 ml Output Total 0 ml Balance 1236 ml Laboratory Data Labs 24H Laboratory Tests 2 06/24/19 05:40: Nucleated Red Blood Cells % (auto) 0.0, Anion Gap 7L, Glomerular Filtration Rate > 60.0, Blood Urea Nitrogen 18, Creatinine 0.88, Sodium Level 140, Potassium Level 3.5, Chloride Level 108H, Carbon Dioxide Level 25, Calcium Level 9.3 CBC/BMP Laboratory Tests 06/24/19 05:40 Red Blood Count 4.69, Mean Corpuscular Volume 83.2, Mean Corpuscular Hemoglobin 27.5, Mean Corpuscular Hemoglobin Concent 33.1, Red Cell Distribution Width 13.3, Calcium Level 9.3 Discharge Medications Scheduled Ascorbic Acid (Vitamin C) 500 Mg Tablet, 1,000 MG PO DAILY, (Reported) Atenolol (Atenolol) 50 Mg Tablet, 50 MG PO DAILY, (Reported) Atorvastatin Calcium (Atorvastatin Calcium) 10 Mg Tablet, 10 MG PO DAILY, (Reported) Cholecalciferol (Vitamin D3) (Vitamin D3) 1,000 Unit Capsule, 1,000 UNIT PO DAILY, (Reported) Cyanocobalamin (Vitamin B-12) (Vitamin B-12) 1,000 Mcg Tablet, 1,000 MCG PO DAILY, (Reported) Multivitamin (Multivitamins) 1 Each Capsule, 1 CAP PO DAILY, (Reported) Omeprazole (Omeprazole) 40 Mg Cap, 40 MG PO DAILY, (Reported) Spironolact/Hydrochlorothiazid (Spironolactone-Hctz 25-25 Tab) 1 Ea Tab, 1 TAB PO DAILY, (Reported) Venlafaxine HCl (Venlafaxine HCl ER) 37.5 Mg Cap.er.24h, 37.5 MG PO DAILY, (Reported) Allergies Coded Allergies: latex (Verified Allergy, Unknown, rash/blister, 06/21/19) NATHANIEL CABRERA MD Jun 24, 2019 13:44
== END 2019-06-24 11:28 | disposition home or self-care (01) ==
LOC: M ED 15:08 → M ED INP 15:09 → M MSPAV 19:57
PROVIDERS: ADMIT Internal Medicine; ATTEND Internal Medicine
DX: R00.2 Palpitations (principal); R55 Syncope and collapse; F41.9 Anxiety disorder, unspecified; F32.9 Major depressive disorder, single episode, unspecified; I10 Essential (primary) hypertension; K21.9 Gastro-esophageal reflux disease without esophagitis; Z79.899 Other long term (current) drug therapy; Z91.040 Latex allergy status
CPT/HCPCS: 36415; 70450; 71045; 71275; 80047; 80048; 81001; 82550; 82553; 83735; 84443; 84484; 85025; 85027; 85610; 85730; 93005; 93041; 93306; 94760; 95819; 96372; 97161; 99285; G0378; Q9967

== ENCOUNTER 2019-06-25 16:35 | Emergency (ER) | payer MEDICARE, BC, OTHER ==
[~2019-06-25] VITALS: Ht 160 cm; Wt 72.3 kg
[~2019-06-25 16:35] MED LIST changes: +ATEN50TA2 PO; +ATOR1TAB19 PO; +MULTCAP PO; +OMEP40CA2 PO; -OMEP40CA97 PO; +VENL37.598 PO; +VITA-183 PO; +VITA100018 PO; +VITA500T11 PO
[2019-06-25 18:49] LABS: BASO % 0.7 % (0.0-1.0); EOS # 0.1 10^3/uL (0.0-0.5); EOS % 1.3 % (0.0-3.0); HEMATOCRIT 39.8 % (36.0-47.0); HEMOGLOBIN 13.4 g/dl (12.0-15.5); LYMPH # 1.8 10^3/uL (1.5-5.0); MEAN CORPUSCULAR HGB CONC 33.7 g/dl (32.0-36.5); MEAN CORPUSCULAR VOLUME 83.3 fl (80.0-96.0); MONO # 0.6 10^3/uL (0.0-0.8); MONO % 9.2 % (0.0-5.0); NEUTROPHILS # 3.6 10^3/uL (1.5-8.5); NEUTROPHILS % 58.5 % (36.0-66.0); PLATELET COUNT, AUTOMATED 184 10^3/uL (150-450); RED BLOOD COUNT 4.78 10^6/uL (4.00-5.40); WHITE BLOOD COUNT 6.1 10^3/uL (4.0-10.0)
[2019-06-25 19:18] LABS: ALT/SGPT 45 U/L (12-78); BILIRUBIN,TOTAL 0.3 MG/DL (0.2-1.0); BLOOD UREA NITROGEN 19 MG/DL (7-18); CALCIUM LEVEL 9.7 MG/DL (8.8-10.2); CARBON DIOXIDE LEVEL 29 MEQ/L (21-32); CHLORIDE LEVEL 106 MEQ/L (98-107); CK-MB VALUE MASS < 1.0 NG/ML (<3.6); CPK CREATINE PHOSPHOKINASE 20 U/L (26-192); CREATININE FOR GFR 0.83 MG/DL (0.55-1.30); GLOMERULAR FILTRATION RATE > 60.0 (>45); GLUCOSE, FASTING 94 MG/DL (70-100); POTASSIUM SERUM 3.6 MEQ/L (3.5-5.1); SODIUM LEVEL 141 MEQ/L (136-145); TOTAL PROTEIN 6.8 GM/DL (6.4-8.2); TROPONIN I < 0.02 NG/ML (< 0.10)
[2019-06-25 20:42] LABS: NT-PRO BNP 52 PG/ML (<125)
[2019-06-25 21:12] VITALS: BP 148/84
--- NOTE | 2019-06-26 07:15 | ECGEPIP ---
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
== END 2019-06-25 21:22 | disposition home or self-care (01) ==
LOC: M ED 16:35
DX: R00.2 Palpitations (principal); R06.02 Shortness of breath; R53.1 Weakness; Z79.899 Other long term (current) drug therapy; Z91.040 Latex allergy status

== ENCOUNTER 2019-06-28 13:30 | Emergency (ER) | payer MEDICARE, BC, OTHER ==
[~2019-06-28] VITALS: Ht 160 cm; Wt 72.7 kg
[2019-06-28 14:14] LABS: BASO % 0.6 % (0.0-1.0); EOS # 0.1 10^3/uL (0.0-0.5); EOS % 1.9 % (0.0-3.0); HEMATOCRIT 37.3 % (36.0-47.0); HEMOGLOBIN 12.6 g/dl (12.0-15.5); LYMPH # 2.1 10^3/uL (1.5-5.0); LYMPH % 44.6 % (24.0-44.0); MEAN CORPUSCULAR HEMOGLOBIN 27.7 pg (27.0-33.0); MEAN CORPUSCULAR HGB CONC 33.8 g/dl (32.0-36.5); MONO # 0.5 10^3/uL (0.0-0.8); NEUTROPHILS % 42.7 % (36.0-66.0); PLATELET COUNT, AUTOMATED 212 10^3/uL (150-450); RED BLOOD COUNT 4.55 10^6/uL (4.00-5.40); WHITE BLOOD COUNT 4.8 10^3/uL (4.0-10.0)
[2019-06-28 14:45] LABS: BLOOD UREA NITROGEN 12 MG/DL (7-18); CALCIUM LEVEL 9.4 MG/DL (8.8-10.2); CARBON DIOXIDE LEVEL 25 MEQ/L (21-32); CHLORIDE LEVEL 108 MEQ/L (98-107); CK-MB VALUE MASS < 1.0 NG/ML (<3.6); CPK CREATINE PHOSPHOKINASE 23 U/L (26-192); CREATININE FOR GFR 0.87 MG/DL (0.55-1.30); GLOMERULAR FILTRATION RATE > 60.0 (>45); GLUCOSE, FASTING 110 MG/DL (70-100); MB/CK RELATIVE INDEX 4.35 (< OR =4); POTASSIUM SERUM 3.6 MEQ/L (3.5-5.1); SODIUM LEVEL 140 MEQ/L (136-145); TROPONIN I < 0.02 NG/ML (< 0.10)
[2019-06-28] MEDS ORDERED: PARO20TA3 PO (15:11)
[2019-06-28] MEDS ORDERED: VENL37.598 PO (15:11)
[2019-06-28 17:00] VITALS: BP 170/79
--- NOTE | 2019-06-28 20:38 | ECGEPIP ---
[facility] - ED Test Date: 2019-06-28 Pat Name: CECI CLINTON Department: Room: - Gender: Female Bobbin Inspector: JDelfino : 1950 Requested By: Vernon Horner Order Number: [id number] Reading MD: Flor Danielson Measurements Intervals [place] Rate: 56 P: -3 UT: 199 QRS: -21 QRSD: 97 T: 7 QT: 411 QTc: 400 Interpretive Statements SINUS BRADYCARDIA BORDERLINE LEFT AXIS DEVIATION MODERATE VOLTAGE CRITERIA FOR LVH, CONSIDER NORMAL VARIANT SIMILAR 06/25/19 Electronically Signed on 06-28-2019 20:38:12 EDT by Flor Danielson
== END 2019-06-28 17:33 | disposition home or self-care (01) ==
LOC: EDBD 13:30 → M ED 13:30
DX: R00.2 Palpitations (principal); R07.89 Other chest pain; R55 Syncope and collapse; R00.1 Bradycardia, unspecified; I10 Essential (primary) hypertension; K21.9 Gastro-esophageal reflux disease without esophagitis; M19.90 Unspecified osteoarthritis, unspecified site; F32.9 Major depressive disorder, single episode, unspecified; F41.9 Anxiety disorder, unspecified; Z96.651 Presence of right artificial knee joint; Z91.040 Latex allergy status; Z79.899 Other long term (current) drug therapy

== ENCOUNTER → 2019-07-06 | Outpatient (REF) | payer MEDICARE, OTHER ==
[~2019-07-06] MED LIST changes: -OMEP40CA2 PO; +OMEP40CA97 PO; +PARO20TA3 PO
[2019-07-06 13:28] LABS: LUTEINIZING HORMONE 21.4 mIU/mL
== END ==
LOC: M LABDRAW1 12:06
PROVIDERS: ATTEND Family Medicine
DX: R55 Syncope and collapse (principal)

== ENCOUNTER → 2019-07-11 | Outpatient (REF) | payer MEDICARE, OTHER ==
[~2019-07-11] MED LIST changes: +OMEP40CA2 PO; -OMEP40CA97 PO
== END ==
LOC: M LAB REF 09:30
PROVIDERS: ATTEND Physician Assistant
DX: N39.0 Urinary tract infection, site not specified (principal)

== ENCOUNTER → 2019-07-15 | Outpatient (REF) | payer MEDICARE, OTHER ==
[~2019-07-15] MED LIST changes: -OMEP40CA2 PO; +OMEP40CA97 PO
== END ==
LOC: M SFHCPLAZ 19:29
PROVIDERS: ATTEND Dermatology
DX: L81.4 Other melanin hyperpigmentation (principal)

== ENCOUNTER → 2019-08-03 | Outpatient (REF) | payer MEDICARE, OTHER ==
[~2019-08-03] MED LIST changes: +OMEP40CA2 PO; -OMEP40CA97 PO
[2019-08-03 16:29] LABS: BASO % 0.4 % (0.0-1.0); EOS # 0.1 10^3/uL (0.0-0.5); EOS % 2.1 % (0.0-3.0); HEMATOCRIT 37.3 % (36.0-47.0); HEMOGLOBIN 12.1 g/dl (12.0-15.5); LYMPH # 1.8 10^3/uL (1.5-5.0); LYMPH % 37.1 % (24.0-44.0); MEAN CORPUSCULAR HEMOGLOBIN 26.7 pg (27.0-33.0); MEAN CORPUSCULAR HGB CONC 32.4 g/dl (32.0-36.5); MEAN CORPUSCULAR VOLUME 82.2 fl (80.0-96.0); MONO # 0.4 10^3/uL (0.0-0.8); MONO % 7.8 % (0.0-5.0); NEUTROPHILS # 2.5 10^3/uL (1.5-8.5); NEUTROPHILS % 52.4 % (36.0-66.0); PLATELET COUNT, AUTOMATED 223 10^3/uL (150-450); RED BLOOD COUNT 4.54 10^6/uL (4.00-5.40); WHITE BLOOD COUNT 4.7 10^3/uL (4.0-10.0)
[2019-08-03 18:35] LABS: ERYTHROCYTE SEDIMENTATION RATE 16 mm/hr (0-30)
== END ==
LOC: M LABDRAW1 15:40
PROVIDERS: ATTEND Orthopaedic Surgery
DX: Z47.1 Aftercare following joint replacement surgery (principal); Z79.899 Other long term (current) drug therapy

== ENCOUNTER → 2019-08-13 | Outpatient (CLI) | payer MEDICARE, BC, OTHER ==
[~2019-08-13] MED LIST changes: -OMEP40CA2 PO; +OMEP40CA97 PO
--- NOTE | 2019-08-13 14:15 | REP ---
REASON FOR EXAM: Status post TKR right knee 02/05. After the intravenous administration of 22.0 mCi of technetium-99m MDP a triple phase bone scan of the knees was obtained. The flow study shows photopenia in the right knee from TKR. No focally abnormal increased or decreased radionuclide accumulation is seen involving either knee. Blood pool imaging shows no abnormal periprosthetic increased radionuclide accumulation in the right knee. There is slightly increased radionuclide accumulation seen in the left knee. Delay imaging shows no abnormal increased radionuclide accumulation in the periprosthetic components of the right knee. There is slight expected increased activity in the right knee and there is a degenerative type uptake pattern in the left knee. IMPRESSION: 1. There is no definite evidence of right knee prosthetic loosening. 2. Degenerative changes were seen in the left knee. Electronically Signed by Jose Cordova DO 08/13/2019 04:57 P
== END ==
LOC: M RAD 07:42
PROVIDERS: ATTEND Orthopaedic Surgery
DX: Z47.1 Aftercare following joint replacement surgery (principal)
CPT/HCPCS: 78315; A9503

== ENCOUNTER → 2019-10-09 | Outpatient (CLI) | payer MEDICARE, BC, OTHER ==
--- NOTE | 2019-10-09 13:12 | REP ---
MRI lumbar spine: 10/09/2019. Indication: Lumbar radiculopathy. Comparison: None. Technique: Multiplanar short and long TR sequences of the lumbar spine were obtained without IV Gadolinium. Findings: There is minimal anterolisthesis of L4 on L5 as well as L5 on S1 secondary to facet arthropathy. There is no worrisome marrow or cord signal. Disc dessication is present throughout most pronounced inferiorly. No significant paraspinal soft tissue abnormalities are detected. L1/L2 and L2/L3: There is no disc herniation or significant spinal canal / neural foraminal narrowing. L3/L4: Mild diffuse disc bulge and bilateral facet arthropathy are present with mild spinal canal and neural foraminal narrowing. L4/L5: Diffuse disc uncovering/bulge and bilateral facet arthropathy are present with moderate bilateral recess and neural foraminal narrowing. L5/S1: Diffuse disc uncovering/bulge and bilateral facet arthropathy are present with mild spinal canal and neural foraminal narrowing. Impression: Degenerative sequelae of predominately involving the lower lumbar spine without severe spinal canal or neural foraminal narrowing. No focal disc herniation. Electronically Signed by Sky Johnston DO 10/09/2019 01:03 P
== END ==
LOC: M RAD 10:12
PROVIDERS: ATTEND Orthopaedic Surgery
DX: M47.26 Other spondylosis with radiculopathy, lumbar region (principal); M51.26 Other intervertebral disc displacement, lumbar region; M48.061 Spinal stenosis, lumbar region without neurogenic claudication

== ENCOUNTER → 2020-10-26 | Outpatient (CLI) | payer MEDICARE, BC, OTHER ==
[~2020-10-26] MED LIST changes: +D31000TA2 PO; +METO25TA4 PO; +MULT-90 PO; +VITA-243 PO; -VITA500T PO
[2020-10-26 09:08] LABS: HEMATOCRIT 37.7 % (36.0-47.0); HEMOGLOBIN 12.2 g/dl (12.0-15.5); MEAN CORPUSCULAR HEMOGLOBIN 27.1 pg (27.0-33.0); MEAN CORPUSCULAR HGB CONC 32.4 g/dl (32.0-36.5); MEAN CORPUSCULAR VOLUME 83.8 fl (80.0-96.0); PLATELET COUNT, AUTOMATED 199 10^3/uL (150-450); WHITE BLOOD COUNT 3.7 10^3/uL (4.0-10.0)
--- NOTE | 2020-10-26 09:15 | REP ---
INDICATION: LEFT KNEE OSTEOARTHRTITIS;PRE OP LAB 1ST EKG 2ND XR 3RD COMPARISON: 06/21/2019 TECHNIQUE: PA and lateral. FINDINGS: The mediastinum and cardiac silhouette are normal/stable incidental calcified hilar lymph nodes again noted. The lung fraser are clear and without acute consolidation, effusion, or pneumothorax. The skeletal structures are intact and normal. IMPRESSION: No acute cardiopulmonary process. <Electronically signed by Alex Andrew > 10/26/20 0911
[2020-10-26 09:28] LABS: INR 0.93; PROTHROMBIN TIME 12.7 SECONDS (12.5-14.3)
[2020-10-26 09:44] LABS: ALBUMIN 3.9 GM/DL (3.2-5.2); ALT/SGPT 36 U/L (12-78); BILIRUBIN,TOTAL 0.5 MG/DL (0.2-1.0); BLOOD UREA NITROGEN 18 MG/DL (7-18); CALCIUM LEVEL 9.3 MG/DL (8.8-10.2); CARBON DIOXIDE LEVEL 27 MEQ/L (21-32); CHLORIDE LEVEL 108 MEQ/L (98-107); CREATININE FOR GFR 0.95 MG/DL (0.55-1.30); GLOMERULAR FILTRATION RATE > 60.0 (>39); GLUCOSE, FASTING 96 MG/DL (70-100); SODIUM LEVEL 141 MEQ/L (136-145); TOTAL PROTEIN 6.4 GM/DL (6.4-8.2)
[2020-10-26 09:49] LABS: ERYTHROCYTE SEDIMENTATION RATE 15 mm/hr (0-30)
--- NOTE | 2020-10-26 23:51 | ECGEPIP ---
[facility] Test Date: 2020-10-26 Pat Name: CECI CLINTON Department: Room: - Gender: Female Winemaker: : 1950 Requested By: Michael Carpenter Order Number: [id number] Reading MD: Temo Yousif Measurements Intervals [place] Rate: 56 P: -10 [place]: 179 QRS: -12 QRSD: 93 T: 16 QT: 413 QTc: 400 Interpretive Statements SINUS BRADYCARDIA BORDERLINE LEFT AXIS DEVIATION MODERATE VOLTAGE CRITERIA FOR LVH, CONSIDER NORMAL VARIANT SIMILAR TO 06/28/19, 13:48 Electronically Signed on 10-26-2020 23:51:40 EST by Temo Yousif
== END ==
LOC: M LAB 08:19
PROVIDERS: ATTEND Orthopaedic Surgery
DX: Z01.818 Encounter for other preprocedural examination (principal); M17.12 Unilateral primary osteoarthritis, left knee; R94.31 Abnormal electrocardiogram [ECG] [EKG]

== ENCOUNTER → 2020-10-30 | Outpatient (CLI) | payer MEDICARE, BC, OTHER | LOC: M LABSMTC 08:23 | PROVIDERS: ATTEND Anesthesiology | DX: Z01.812 Encounter for preprocedural laboratory examination (principal); Z20.822 Contact with and (suspected) exposure to COVID-19 ==

== ENCOUNTER 2020-11-04 09:11 | Inpatient (IN) | payer MEDICARE, BC, OTHER ==
--- NOTE | 2020-11-03 14:43 | HPE ---
PRE-OP HISTORY AND PHYSICAL DATE OF ANTICIPATEDADMISSION: 11/04/2020 ADMITTING PHYSICIAN: Jayden Cantrell M.D. CHIEF COMPLAINT: Left knee pain. HISTORY OF PRESENT ILLNESS: Elza is a pleasant 70-year-old female with progressively worsening left knee pain and stiffness. She has failed to improve with conservative treatment. She has elected for surgery for her continued symptoms. She has pain with weightbearing activities and her activities of daily living. X-rays of her knee are notable for advanced osteoarthritis of the left knee joint. She has consented for a left total knee arthroplasty by Dr. Jayden Cantrell. Medical optimization was performed by Dr. Dickerson. ALLERGIES: Latex. CURRENT MEDICATIONS: 1. Metoprolol 50 mg twice a day. 2. Spironolactone 25/25 one half pill a day. 3. Omeprazole 40 mg a day. 4. Atorvastatin 10 mg a day. 5. Fish Oil 2,000 mg once a day. 6. Red Yeast 600 mg twice a day. 7. Magnesium 500 mg once a day. 8. Lily-C 1,000 a day. 9. Vitamin B12 5,000 mEq a day. 10.Multivitamin once a day. 11.Hair, skin and nails once a day. 12.Biotin 10,000 units once a day. 13.Vitamin E 400 international units a day. 14.Vitamin D3 1,000 units a day. 15.Potassium 99 mEq once a day. 16.Calcium 600 plus D3 once a day. PAST MEDICAL HISTORY: Includes hypertension, acid reflux and hyperlipidemia. PAST SURGICAL HISTORY: Two Cesareans, an appendectomy, two hernia repairs, bunionectomy, knee arthroscopy, nasal surgery, right shoulder surgery, left shoulder surgery, bilateral eye surgeries, right total knee replacement. SOCIAL HISTORY: Elza is retired. She does not smoke. She rarely drinks alcohol. FAMILY HISTORY: Noncontributory. REVIEW OF SYSTEMS: This patient denies chest pain, heart palpitations, cough, wheezing, difficulty breathing and shortness of breath. She denies abdominal pain, nausea, vomiting, diarrhea or constipation. She denies recent upper respiratory infection or urinary tract infection symptoms. She does complain of persistent pain in her left knee. PHYSICAL EXAMINATION: GENERAL: She is a well-nourished, well developed, in no acute distress, alert female. She walks with a mild limp, favoring her left lower extremity. She is not using assistive devices. VITAL SIGNS: She is 64-1/2 inches tall, weighs 151.8 pounds. Temperature 96.7, blood pressure 124/63, pulse 54 and respirations 14. NECK: Supple, without adenopathy or jugular venous distention. LUNGS: Clear to auscultation, without rales or wheeze throughout. HEART: Regular rate and rhythm. ABDOMEN: Bowel sounds were present. EXTREMITIES: Examination of the knee revealed intact skin. She had decreased range of motion due to pain and stiffness. The limb is neurovascularly intact. LABORATORY DATA: Protime 12.7, INR 0.93. Glucose 96, BUN 18, creatinine 0.95, sodium 141, potassium 4.0. CBCX showed white count 3.7, otherwise within normal limits. Sed rate 15. IMAGING STUDIES: Chest x-ray showed no acute cardiopulmonary disease processes. EKG showed sinus bradycardia at 56 beats per minute. IMPRESSION: Symptomatic osteoarthritis of the left knee joint. PLAN: Consented for a left total knee arthroplasty by Dr. Jayden Cantrell.
[~2020-11-04] VITALS: Ht 160 cm; Wt 78.1 kg
[~2020-11-04 09:11] MED LIST changes: +ACETAMINOPHEN 500 MG TAB PO ONE; +LR 1,000 ML IV ONE; +ceFAZolin SOD 2 GM in IV 1 EA IV ONE
--- OUTSIDE RECORDS SUMMARY | 2020-11-04 09:19 | CCD | Continuity of Care Document ---
Author Author Elza ANN MD Organization Unknown Address [address] [place] [address] Phone [phone] Care Team Providers Care Forming Department Supervisor Name Role Phone Carl Dickerson MD AUT [phone] Problems Description No Active Problems Social History Type Date Description Comments Sex Unknown ETOH Use Occasionally consumes alcohol Tobacco Use Start: Unknown Denies Smoking Smoking Status Reviewed: 12/10/19 Denies Smoking Allergies, Adverse Reactions, Alerts Active Allergies Reaction Severity Comments Date Latex 09/23/2015 Medications Active Medications SIG Qnty Indications Ordering Provide r Date Hydrocodone-Acetaminophen 5-325mg Tablets 1-2 tabs every 4-6 hours as needed pain after surgery( Please DO Not Fill Until 12/01/2019) 30tabs Michael Ann MD 020 Atenolol 25mg Tablets 1 by mouth every day Unknown Spironolactone/Hydrochlorothiazide 25-25mg Tablets Unknown Omeprazole 10mg Capsules DR Unknown Atorvastatin Calcium 10mg Tablets Take One Tablet By Mouth Every Day Unknown Immunizations Description No Information Available Vital Signs Date Vital Result Comment 12/10/2019 1:49pm Body Temperature 97.8 F 08/14/2019 8:08am Body Temperature 98.2 F Height 63 inches 5'3" Weight 160.00 lb BMI (Body Mass Index) 28.3 kg/m2 Results Description No Information Available Procedures Date Code Description Status 07/05/202084951 Inject/Drain Joint/Bursa Major C ompleted Medical Devices Description No Information Available Encounters Type Date Location Provider Dx Diagnosis Office Visit 07/05/2020 9:45a Zac Ann MD M1 7.12 Unilateral primary osteoarthritis, left knee M79.644 Pain in right finger(s) Assessments Date Code Description Provider 09/09/2020 M17.12 Unilateral primary osteoarthriti s, left knee Michael Ann MD 09/09/2020 M79.644 Pain in right finger(s) Michael Ann MD 07/05/2020 M17.12 Unilateral primary osteoarthriti s, left knee Michael Ann MD 07/05/2020 M79.644 Pain in right finger(s) Michael Ann MD Plan of Treatment 09/09/2020 - Michael Ann MD* M17.12 Unilateral primary osteoarthritis, left knee* New Orders:* Surgery, Ordered: 09/09/20 * Follow up:* post op * M79.644 Pain in right finger(s) Functional Status Description No Information Available Mental Status Description No Information Available Referrals Description No Information Available
--- OUTSIDE RECORDS SUMMARY | 2020-11-04 09:19 | CCD | Continuity of Care Document ---
Author Author Elza ANN MD Organization Unknown Address [address] [place] [address], [facility] [address] [place] [address] Phone [phone] Care Team Providers Care Family Medicine Physician Name Role Phone Carl Dickerson MD AUT [phone] Problems Description No Active Problems Social History Type Date Description Comments Sex Unknown ETOH Use Occasionally consumes alcohol Tobacco Use Start: Unknown End: Unknown Patient is a former smoker Smoking Status Reviewed: 12/10/19 Patient is a former smoker Allergies, Adverse Reactions, Alerts Active Allergies Reaction [...] BMI (Body Mass Index) 28.3 kg/m2 Results Test Acquired Date Facility Test Result H/L Range Note Order 09/12/2020 [facility] nter Surgery <pending> Procedures Date Code Description Status 07/05/2020 Inject/Drain Joint/Bursa Major C ompleted Medical Devices Description No Information Available Encounters Type Date Location Provider Dx Diagnosis Office Visit 09/09/2020 2:00p [place] Michael Ann MD M1 7.12 Unilateral primary osteoarthritis, left knee Office Visit 07/05/2020 9:45a [place] Ann MD M1 7.12 Unilateral primary osteoarthritis, left knee M79.644 Pain in right finger(s) Assessments Date Code Description Provider 09/09/2020 M17.12 Unilateral primary osteoarthriti s, left knee Michael Ann MD 07/05/2020 M17.12 Unilateral primary osteoarthriti s, left knee Michael Ann MD 07/05/2020 M79.644 Pain in right finger(s) Michael Ann MD Plan of Treatment 09/09/2020 - Michael Ann MD* M17.12 Unilateral primary osteoarthritis, left knee* Follow up:* post op Functional Status Description No Information Available Mental Status Description No Information Available Referrals Refer to Dr Reason for Referral Status Appt Date Alycia Ann MD SURGERY NO AUTH REQUIRED FOR LEFT TOTAL KNEE([id number]) SECONDARY INS TO SURGERY NT Created [facility] [address] [address] [phone] Alycia Ann MD SURGERY NO AUTH REQUIRED FOR LEFT TOTAL KNEE([id number]) TO SURGERY NT Created [facility] [address] [address] [phone]
--- OUTSIDE RECORDS SUMMARY | 2020-11-04 09:19 | CCD | Continuity of Care Document ---
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 Name Role Phone Carl Dickerson MD [facility] [phone] Problems Description No Active Problems Social History Type Date Description Comments Sex Unknown ETOH Use Occasionally consumes alcohol Tobacco Use Start: Unknown End: Unknown Patient is a former smoker Smoking Status Reviewed: 12/10/19 Patient is a former smoker Allergies, Adverse Reactions, Alerts Active Allergies Reaction Severity Comments Date Latex 09/23/2015 Medications Active Medications SIG Qnty Indications Ordering Provide r Date Hibiclens 4% Liquid use in shower once daily for 5 days before surgery 1units Michael roth MD 10/17/2020 Mupirocin 2% Ointment apply a pea sized amount to the nasal passages 3 times a day for 5 days prior to surgery 22gm Michael Ann MD 10/17/2020 Hydrocodone-Acetaminophen 5-325mg Tablets 1-2 tabs every 4-6 hours as needed pain after surgery( Please DO Not Fill Until 12/01/2019) 30tabs Michael Ann MD 020 Spironolactone/Hydrochlorothiazide 25-25mg Tablets Unknown Atorvastatin Calcium 10mg Tablets Take One Tablet By Mouth Every Day Unknown Metoprolol Succinate ER 50mg Tablets ER 24HR 1 tab in the morning and 1 tab at night by mouth. Unknown Omeprazole 40mg Capsules DR Unknown Immunizations Description No Information Available Vital Signs Date Vital Result Comment 11/02/2020 9:38am BP Systolic 136 mmHg BP Diastolic 85 mmHg Heart Rate 67 /min Body Temperature 96.4 F Height 64.75 inches 5'4.75" Weight 173.50 lb BMI (Body Mass Index) 29.1 kg/m2 Respiratory Rate 14 /min 12/10/2019 1:49pm Body Temperature 97.8 F Results Test Acquired Date Facility Test Result H/L Range Note Prothrombin Time/Inr 10/26/2020 [facility] entr [address] [place] [address] (315)- - Prothrombin Time 12.7 seconds Normal 12.5-14.3 Inr 0.93 Normal 1 Comprehensive Metabolic Profil 10/26/[address] [address] (315)- - Glucose, Fasting 96 mg/dL Normal 70-100 Blood Urea Nitrogen 18 mg/dL Normal 7-18 Creatinine For GFR 0.95 mg/dL Normal 0.55-1.30 Glomerular Filtration Rate > 60.0 Normal >39 2 Sodium Level 141 mEq/L Normal 136-145 Potassium Serum 4.0 mEq/L Normal 3.5-5.1 Chloride Level 108 mEq/L High 98-107 Carbon Dioxide Level 27 mEq/L Normal 21-32 Anion Gap 6 mEq/L Low 8-16 Calcium Level 9.3 mg/dL Normal 8.8-10.2 Ast/Sgot 20 U/L Normal 7-37 Alt/SGPT 36 U/L Normal 12-78 Alkaline Phosphatase 78 U/L Normal 45-117 Bilirubin,Total 0.5 mg/dL Normal 0.2-1.0 Total Protein 6.4 GM/DL Normal 6.4-8.2 Albumin 3.9 GM/DL Normal 3.2-5.2 Albumin/Globulin Ratio 1.6 Normal 1.2-2.2 Complete Blood Count 10/26/2020 [facility] entr [address] [place] [address] (315)- - White Blood Count 3.7 10 Low 4.0-10.0 Red Blood Count 4.50 10 Normal 4.00-5.40 Hemoglobin 12.2 g/dL Normal 12.0-15.5 Hematocrit 37.7 % Normal 36.0-47.0 Mean Corpuscular Volume 83.8 fl Normal 80.0-96.0 Mean Corpuscular Hemoglobin 27.1 pg Normal 27.0-33.0 Mean Corpuscular HGB Conc 32.4 g/dL Normal 32.0-36.5 Red Cell Distribution Width 13.2 % Normal 11.5-14.5 Platelet Count, Automated 199 10 Normal 150-450 Nucleated Red Blood Cell % 0.0 % Normal 0-0 Laboratory test finding 10/26/2020 [facility] [address] [place] [address] (315)- - Erythrocyte Sedimentation Rate 15 mm/hr Normal 0-30 1 THERAPUTIC HUMAN INR VALUES INDICATIONS NORMAL RANGES PROPHYLAXIS/TREATMENT OF: VENOUS THROMBOSIS 2.0-3.0 PULMONARY EMBOLISM 2.0-3.0 PREVENTION OF SYSTEMIC EMBOLISM FROM: TISSUE HEART VALVES 2.0-3.0 ACUTE MYOCARDIAL INFARCTION 2.0-3.0 VALVULAR HEART DISEASE 2.0-3.0 ATRIAL FIBRILLATION 2.0-3.0 MECHANICAL VALVES(HIGH RISK) 2.5-3.5 RECURRENT MYOCARDIAL INFARCTION 2.5-3.5 2 Units are mL/min/1.73 m2 Chronic Kidney Disease Staging per NKF: Stage I & II GFR >=60 Normal to Mildly Decreased Stage III GFR 30-59 Moderately Decreased Stage IV GFR 15-29 Severely Decreased Stage V GFR <15 Very Little GFR Left ESRD GFR <15 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 Procedures Date Code Description Status 07/05/2020 Inject/Drain Joint/Bursa Major C ompleted Medical Devices Description No Information Available Encounters Type Date Location Provider Dx Diagnosis Office Visit 11/02/2020 9:00a Zac Meyer PA-C Z0 1.818 Encounter for other preprocedural examination M17.12 Unilateral primary osteoarth ritis, left knee Office Visit 09/09/2020 2:00p Zac Ann MD M1 7.12 Unilateral primary osteoarthritis, left knee Office Visit 07/05/2020 9:45a Zac Ann MD M1 7.12 Unilateral primary osteoarthritis, left knee M79.644 Pain in right finger(s) Assessments Date Code Description Provider 11/02/2020 Z01.818 Encounter for other preprocedura l examination Antonino Meyer PA-C 11/02/2020 M17.12 Unilateral primary osteoarthriti s, left knee Antonino Meyer PA-C 09/09/2020 M17.12 Unilateral primary osteoarthriti s, left knee Michael Ann MD 07/05/2020 M17.12 Unilateral primary osteoarthriti s, left knee Michael Ann MD 07/05/2020 M79.644 Pain in right finger(s) Michael Ann MD Plan of Treatment Future Appointment(s):* 11/17/2020 10:00 am - Michael Ann MD at [place] * 11/04/2020 11:30 am - Antonino Meyer PA-C at Surgery [facility] Inpatient * 11/04/2020 11:30 am - Michael Ann MD at Surgery [facility] Inpatient Functional Status Description No Information Available Mental Status Description No Information Available Referrals Refer to Dr Reason for Referral Status Appt Date Alycia Ann MD SURGERY NO AUTH REQUIRED FOR LEFT TOTAL KNEE([id number]) SECONDARY INS TO SURGERY NT Created [address] [place] [phone] Alycia Ann MD SURGERY NO AUTH REQUIRED FOR LEFT TOTAL KNEE([id number]) TO SURGERY NT Created [address] [place] [phone]
--- OUTSIDE RECORDS SUMMARY | 2020-11-04 09:19 | CCD | Continuity of Care Document ---
Author Author Elza ANN MD Organization Unknown Address [address] [place] [address], [facility] e [address] [place] [address] Phone [phone] Care Team Providers Care Ecotherapist Name Role Phone Carl Dickerson MD [facility] [phone] Problems Description No Active Problems Social History [...] Result H/L Range Note Prothrombin Time/Inr 10/26/[address] [address] (315)- - Prothrombin Time 12.7 seconds Normal 12.5-14.3 Inr 0.93 Normal 1 Comprehensive Metabolic Profil 10/26/[address] [address] (315)- - Glucose, Fasting 96 mg/dL Normal [...] 1.6 Normal 1.2-2.2 Complete Blood Count 10/26/[address] [address] (315)- - White Blood Count 3.7 10 [...] % Normal 0-0 Laboratory test finding 10/26/2020 [facility] [address] [place] [address] (315)- - Erythrocyte Sedimentation Rate 15 mm/hr [...] Little GFR Left 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 Procedures Date Code Description Status 07/05/2020 Inject/Drain Joint/Bursa Major C ompleted Medical Devices Description No Information Available Encounters Type Date Location Provider Dx Diagnosis Office Visit 09/09/2020 2:00p [facility] Michael Ann MD M1 7.12 Unilateral primary osteoarthritis, left knee Office Visit 07/05/2020 9:45a [facility] Michael Ann MD M1 7.12 Unilateral primary [...] 10:00 am - Michael Ann MD at [facility] * 11/02/2020 9:00 am - Antonino Meyer PA-C at [facility] * 11/04/2020 11:30 am - Antonino Meyer PA-C at Surgery [facility] Inpatient * 11/04/2020 11:30 am - Michael Ann MD at Surgery [facility] Inpatient 09/09/2020 - Michael Ann MD* M17.12 Unilateral primary osteoarthritis, left knee* Follow up:* post op Functional Status Description No Information Available Mental Status Description No Information Available Referrals Refer to Dr Reason for Referral Status Appt Date Alycia Ann MD SURGERY NO AUTH REQUIRED FOR LEFT TOTAL KNEE([id number]) SECONDARY INS TO SURGERY NT Created [address] [place] [phone] Alycia Ann MD SURGERY NO AUTH REQUIRED FOR LEFT TOTAL KNEE([id number]) TO SURGERY NT Created [address] [place] [address], [address] [address] [phone]
--- OUTSIDE RECORDS SUMMARY | 2020-11-04 09:19 | CCD | Continuity of Care Document ---
Author Author Elza ANN MD Organization Unknown Address [address] [place] [address], [facility] [address] [place] [address] Phone [phone] Care Team Providers Care Section Hand Name Role Phone Carl Dickerson MD [facility] [phone] Problems Description No Active Problems Social History [...] Result H/L Range Note Prothrombin Time/Inr 10/26/2020 [facility] entr [address] [place] [address] (315)- - Prothrombin Time 12.7 seconds Normal 12.5-14.3 Inr 0.93 Normal 1 Comprehensive Metabolic Profil 10/26/2020 [facility] [address] [place] [address] (315)- - Glucose, Fasting 96 mg/dL Normal [...] Normal 3.2-5.2 Albumin/Globulin Ratio 1.6 Normal 1.2-2.2 1 THERAPUTIC HUMAN INR VALUES INDICATIONS NORMAL [...] Little GFR Left 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 Procedures Date Code Description Status 07/05/2020 [address] Inject/Drain Joint/Bursa Major C ompleted Medical Devices Description No Information Available Encounters Type Date Location Provider Dx Diagnosis Office Visit 09/09/2020 2:00p Zac Ann MD [...] 10:00 am - Michael Ann MD at [place] * 11/02/2020 9:00 am - Antonino Meyer PA-C at [place] * 11/04/2020 11:30 am - Antonino Meyer PA-C at Surgery [facility] Inpatient * 11/04/2020 11:30 am - Michael Ann MD at Surgery [facility] Inpatient 09/09/2020 - Michael Ann MD* M17.12 Unilateral primary osteoarthritis, left knee* Follow up:* post op Functional Status Description No Information Available Mental Status Description No Information Available Referrals Refer to Dr Reason for Referral Status Appt Date Alycia Ann MD SURGERY NO AUTH REQUIRED FOR LEFT TOTAL KNEE([id number]) SECONDARY INS TO SURGERY NT Created [address] [place] [phone] Alycia Ann MD SURGERY NO AUTH REQUIRED FOR LEFT TOTAL KNEE([id number]) TO SURGERY NT Created [address] [place] [phone]
--- OUTSIDE RECORDS SUMMARY | 2020-11-04 09:20 | CCD ---
Author Author [facility] Organization [facility] Address Unknown Phone Unavailable Care Team Providers Care Environmental Engineering Technician Name Role Phone Juni Gottlieb MD Unavailable Unavailable Juni Gottlieb MD Unavailable Unavailable Juni Gottlieb MD Unavailable Unavailable Juni Gottlieb MD Unavailable Unavailable Juni Gottlieb MD Unavailable Unavailable Juni Gottlieb MD Unavailable Unavailable Juni Gottlieb MD Unavailable Unavailable Juni Gottlieb MD Unavailable Unavailable Juni Gottlieb MD Unavailable Unavailable Juni Gottlieb MD Unavailable Unavailable Juni Gottlieb MD Unavailable Unavailable Juni Gottlieb MD Unavailable Unavailable Juni Gottlieb MD Unavailable Unavailable uJni Gottlieb MD Unavailable Unavailable Juni Gottlieb MD Unavailable Unavailable Juni Gottlieb MD Unavailable Unavailable Juni Gottlieb MD Unavailable Unavailable Juni Gottlieb MD Unavailable Unavailable Juni Gottlieb MD Unavailable Unavailable Juni Gottlieb MD Unavailable Unavailable Juni Gottlieb MD Unavailable Unavailable Juni Gottlieb MD Unavailable Unavailable Juni Gottlieb MD Unavailable Unavailable Juni Gottlieb MD Unavailable Unavailable Juni Gottlieb MD Unavailable Unavailable Juni Gottlieb MD Unavailable Unavailable Juni Gottlieb MD Unavailable Unavailable Juni Gottlieb MD Unavailable Unavailable Juni Gottlieb MD Unavailable Unavailable SleJuni gaona MD Unavailable Unavailable SlezkaJasperjtech Unavailable Unavailable SleyasminkaCasimirotech Unavailable Unavailable SleyasminkaCasimirotech Unavailable Unavailable SleyasminkaCasimirotech Unavailable Unavailable SleJuni gaona MD Unavailable Unavailable SlezkaJasperjtech Unavailable Unavailable SlezkaJasperjtech Unavailable Unavailable SlezkaJasperjtech Unavailable Unavailable SleyasminkaJasperjtech Unavailable Unavailable SlezkaJasperjtech Unavailable Unavailable SleyasminkaJasperjtech Unavailable Unavailable SlezkaJasperjtech MD Unavailable Unavailable SlezkaJasperjtech Unavailable Unavailable SlezkaJasperjtech Unavailable Unavailable SleyasminkaJasperjtech Unavailable Unavailable SleyasminkaJasperjtech MD Unavailable Unavailable SleCasimiro gaonatech Unavailable Unavailable SleyasminkaJasperjtech MD Unavailable Unavailable SleJasper gaonajtech Unavailable Unavailable SleJasper gaonajtech Unavailable Unavailable SleCasimiro gaonatech Unavailable Unavailable SleCasimiro gaonatech Unavailable Unavailable SleJuni gaona MD Unavailable Unavailable SleyasminkaJasperjtech MD Unavailable Unavailable SleCasimiro gaonatech Unavailable Unavailable SleyasminkaJasperjtech MD Unavailable Unavailable SleJuni gaona MD Unavailable Unavailable DaviesEveline villagranelle PA Unavailable Unavailable DaviesEveline villagranelle PA Unavailable Unavailable DaviesEveline villagranelle PA Unavailable Unavailable DaviesEveline villagranelle PA Unavailable Unavailable DaviesEveline villagranelle PA Unavailable Unavailable Davies, Eveline PinedaDianne PA Unavailable Unavailable Davies, Eveline PinedaDianne PA Unavailable Unavailable Davies, Eveline PinedaDianne PA Unavailable Unavailable Davies, L Dianne PA Unavailable Unavailable Davies, L Dianne PA Unavailable Unavailable Davies, L Dianne PA Unavailable Unavailable Davies, L Dianne PA Unavailable Unavailable Davies, L Dianne PA Unavailable Unavailable Davies, L Dianne PA Unavailable Unavailable Davies, L Dianne PA Unavailable Unavailable Davies, L Dianne PA Unavailable Unavailable Davies, L Dianne PA Unavailable Unavailable Davies, Eveline PinedaDianne PA Unavailable Unavailable Davies, L Dianne PA Unavailable Unavailable Davies, L Dianne PA Unavailable Unavailable Davies, L Dianne PA Unavailable Unavailable Davies, L Dianne PA Unavailable Unavailable Davies, Eveline PinedaDianne PA Unavailable Unavailable Davies, L Dianne PA Unavailable Unavailable Davies, L Dianne PA Unavailable Unavailable Davies, L Dianne PA Unavailable Unavailable Davies, L Dianne PA Unavailable Unavailable Davies, L Dianne PA Unavailable Unavailable Davies, L Dianne PA Unavailable Unavailable Davies, L Dianne PA Unavailable Unavailable Davies, L Dianne PA Unavailable Unavailable Davies, L Dianne PA Unavailable Unavailable Davies, L Dianne PA Unavailable Unavailable Davies, L Dianne PA Unavailable Unavailable Davies, L Dianne PA Unavailable Unavailable Davies, L Dianne PA Unavailable Unavailable Meyer, M Barratt PA Unavailable Unavailable Meyer, M Barratt PA Unavailable Unavailable Meyer, M Barratt PA Unavailable Unavailable Meyer, M Barratt PA Unavailable Unavailable Meyer, M Barratt PA Unavailable Unavailable Meyer, M Barratt PA Unavailable Unavailable Meyer, M Barratt PA Unavailable Unavailable Meyer, M Barratt PA Unavailable Unavailable Meyer, M Barratt PA Unavailable Unavailable Meyer, M Barratt PA Unavailable Unavailable Meyer, M Barratt PA Unavailable Unavailable Meyer, M Barratt PA Unavailable Unavailable Meyer, M Barratt PA Unavailable Unavailable Meyer, M Barratt PA Unavailable Unavailable Meyer, M Barratt PA Unavailable Unavailable Meyer, M Barratt PA Unavailable Unavailable Meyer, M Barratt PA Unavailable Unavailable Meyer, M Barratt PA Unavailable Unavailable Meyer, M Barratt PA Unavailable Unavailable Meyer, M Barratt PA Unavailable Unavailable Meyer, M Barratt PA Unavailable Unavailable Meyer, M Barratt PA Unavailable Unavailable Meyer, M Barratt PA Unavailable Unavailable Meyer, M Barratt PA Unavailable Unavailable Meyer, M Barratt PA Unavailable Unavailable Meyer, M Barratt PA Unavailable Unavailable CHRIS, ELTON PA Unavailable Unavailable CHRIS, ELTON PA Unavailable Unavailable CHRIS, ELTON PA Unavailable Unavailable CHRIS, ELTON PA Unavailable Unavailable CHRIS, ELTON PA Unavailable Unavailable CHRIS, ELTON PA Unavailable Unavailable CHRIS, ELTON PA Unavailable Unavailable CHRIS, ELTON PA Unavailable Unavailable CHRIS, ELTON PA Unavailable Unavailable CHRIS, ELTON PA Unavailable Unavailable CHRIS, ELTON PA Unavailable Unavailable CHRIS, ELTON PA Unavailable Unavailable CHRIS, ELTON PA Unavailable Unavailable CHRIS, ELTON PA Unavailable Unavailable CHRIS, ELTON PA Unavailable Unavailable CHRIS, ELTON PA Unavailable Unavailable CHRIS, ELTON PA Unavailable Unavailable CHRIS, ELTON PA Unavailable Unavailable CHRIS, ELTON PA Unavailable Unavailable CHRIS, ELTON PA Unavailable Unavailable CHRIS, ELTON PA Unavailable Unavailable CHRIS, ELTON PA Unavailable Unavailable CHRIS, ELTON PA Unavailable Unavailable CHRIS, ELTON PA Unavailable Unavailable CHRIS, ELTON PA Unavailable Unavailable CHRIS, ELTON PA Unavailable Unavailable CHRIS, ELTON PA Unavailable Unavailable CHRIS, ELTON PA Unavailable Unavailable CHRIS, ELTON PA Unavailable Unavailable CHRIS, ELTON PA Unavailable Unavailable CHRIS, ELTON PA Unavailable Unavailable CHRIS, ELTON PA Unavailable Unavailable CHRIS, ELTON PA Unavailable Unavailable CHRIS, ELTON PA Unavailable Unavailable CHRIS, ELTON PA Unavailable Unavailable CHRIS, ELTON PA Unavailable Unavailable CHRIS, ELTON PA Unavailable Unavailable CHRIS, ELTON PA Unavailable Unavailable Alycia Ann MD Unavailable Unavailable Alycia Ann MD Unavailable Unavailable Alycia Ann MD Unavailable Unavailable Alycia Ann MD Unavailable Unavailable Alycia Ann MD Unavailable Unavailable Alycia Ann MD Unavailable Unavailable Alycia Ann MD Unavailable Unavailable Alycia Ann MD Unavailable Unavailable Alycia Ann MD Unavailable Unavailable Alycia Ann MD Unavailable Unavailable Alycia Ann MD Unavailable Unavailable Alycia Ann MD Unavailable Unavailable Alycia Ann MD Unavailable Unavailable Alycia Ann MD Unavailable Unavailable Alycia Ann MD Unavailable Unavailable Alycia Ann MD Unavailable Unavailable Alycia Ann MD Unavailable Unavailable Alycia Ann MD Unavailable Unavailable Alycia Ann MD Unavailable Unavailable Alycia Ann MD Unavailable Unavailable Alycia Ann MD Unavailable Unavailable Alycia Ann MD Unavailable Unavailable Alycia Ann MD Unavailable Unavailable Alycia Ann MD Unavailable Unavailable Alycia Ann MD Unavailable Unavailable Alycia Ann MD Unavailable Unavailable Alycia Ann MD Unavailable Unavailable Alycia Ann MD Unavailable Unavailable Alycia Ann MD Unavailable Unavailable Alycia Ann MD Unavailable Unavailable Alycia Ann MD Unavailable Unavailable Alycia Ann MD Unavailable Unavailable Vaneenenaam, Alycia Carpenter MD Unavailable Unavailable Vaneenenaam, Alycia Carpenter MD Unavailable Unavailable Vaneenenaam, Alycia Carpenter MD Unavailable Unavailable Vaneenenaam, Alycia Carpenter MD Unavailable Unavailable Vaneenenaam, Alycia Carpenter MD Unavailable Unavailable Vaneenenaam, Alycia Carpenter MD Unavailable Unavailable Vaneenenaam, Alycia Carpenter MD Unavailable Unavailable Vaneenenaam, Alycia Carpenter MD Unavailable Unavailable Vaneenenaam, Alycia Carpenter MD Unavailable Unavailable Vaneenenaam, Alycia Carpenter MD Unavailable Unavailable Vaneenenaam, Alycia Carpenter MD Unavailable Unavailable Vaneenenaam, Alycia Carpenter MD Unavailable Unavailable Dodard, Tu DO Unavailable Unavailable Dodard, Tu DO Unavailable Unavailable Dodard, Tu DO Unavailable Unavailable Dodard, Tu DO Unavailable Unavailable Dodard, Tu DO Unavailable Unavailable Dodard, Ut DO Unavailable Unavailable Dodard, Tu DO Unavailable Unavailable Dodard, Tu DO Unavailable Unavailable Dodard, Tu DO Unavailable Unavailable Dodard, Tu DO Unavailable Unavailable Dodard, Tu DO Unavailable Unavailable Dodard, Tu DO Unavailable Unavailable Dodard, Tu DO Unavailable Unavailable Dodard, Tu DO Unavailable Unavailable Dodard, Tu DO Unavailable Unavailable Dodard, Tu DO Unavailable Unavailable Dodard, Tu DO Unavailable Unavailable Dodard, Tu DO Unavailable Unavailable Dodard, Tu DO Unavailable Unavailable Dodard, Tu DO Unavailable Unavailable Dodard, Tu DO Unavailable Unavailable Dodard, Tu DO Unavailable Unavailable Dodard, Tu DO Unavailable Unavailable Dodard, Tu DO Unavailable Unavailable Dodard, Tu DO Unavailable Unavailable Dodard, Tu DO Unavailable Unavailable Dodard, Tu DO Unavailable Unavailable Dodard, Tu DO Unavailable Unavailable Dodard, Tu DO Unavailable Unavailable Dodard, Tu DO Unavailable Unavailable Dodard, Tu DO Unavailable Unavailable Dodard, Tu DO Unavailable Unavailable Dodard, Tu DO Unavailable Unavailable Dodard, Ut DO Unavailable Unavailable Dodard, Tu DO Unavailable Unavailable Dodard, Tu DO Unavailable Unavailable Dodard, Tu DO Unavailable Unavailable Dodard, Tu DO Unavailable Unavailable Dodard, Tu DO Unavailable Unavailable Dodard, Tu DO Unavailable Unavailable Dodard, Tu DO Unavailable Unavailable Dodard, Tu DO Unavailable Unavailable Dodard, Tu DO Unavailable Unavailable Dodard, Tu DO Unavailable Unavailable Duplin, V BRIDGETTE PA-C Unavailable Unavailable Duplin, V BRIDGETTE PA-C Unavailable Unavailable Duplin, V BRIDGETTE PA-C Unavailable Unavailable Duplin, V BRIDGETTE PA-C Unavailable Unavailable Marcia, V BRIDGETTE PA-C Unavailable Unavailable Duplin, V BRIDGETTE PA-C Unavailable Unavailable Re-disclosure Warning The records that you are about to access may contain information from federally-assisted alcohol or drug abuse programs. If such information is present, then the following federally mandated warning applies: This information has been disclosed to you from records protected by federal confidentiality rules (42 CFR part 2). The federal rules prohibit you from making any further disclosure of this information unless further disclosure is expressly permitted by the written consent of the person to whom it pertains or as otherwise permitted by 42 CFR part 2. A general authorization for the release of medical or other information is NOT sufficient for this purpose. The Federal rules restrict any use of the information to criminally investigate or prosecute any alcohol or drug abuse patient.The records that you are about to access may contain highly sensitive health information, the redisclosure of which is protected by Article 27-F of the [facility] Public Health law. If you continue you may have access to information: Regarding HIV / AIDS; Provided by facilities licensed or operated by the [facility] Office of Mental Health; or Provided by the [facility] Office for People With Developmental Disabilities. If such information is present, then the following [facility] mandated warning applies: This information has been disclosed to you from confidential records which are protected by state law. State law prohibits you from making any further disclosure of this information without the specific written consent of the person to whom it pertains, or as otherwise permitted by law. Any unauthorized further disclosure in violation of state law may result in a fine or senior care sentence or both. A general authorization for the release of medical or other information is NOT sufficient authorization for further disc losure. Allergies and Adverse Reactions Type Description Substance Reaction Status Data Source(s ) Adhesive Bandages Adhesive Bandages Adhesive Bandages Angioedema Act odessa eCW1 ([facility]) Family History Family Member Name Family Member Gender Family Member Status Date o f Status Description Data Source(s) Unknown Female Problem [facility] ([facility]) Unknown Female Problem [facility] ([facility]) Unknown Female Problem [facility] ([facility]) Unknown Female Problem [facility] ([facility]) Unknown Female Problem [facility] ([facility]) Encounters Encounter Providers Location Date Indications Data Source(s ) Office Visit Attender: Antonino REYNAGA Physical Therapy 08:00:00 AM EST [facility] ([facility]) Outpatient Attender: Juni [email or web address] 09/22 12:00:00 AM EST - 10/20/2020 02:31:47 PM EST [facility] Outpatient Referrer: BRIDGETTE [email or web address].SYR 10:34:16 AM EST [facility] Outpatient Attender: BRIDGETTE TROYELLI-SJP 07:56:22 AM EST - 10/06/2020 09:46:49 AM EST [facility] Outpatient Referrer: Dianne [email or web address] 11/2019 12:00:00 AM EST [facility] Outpatient Attender: Alycia Ann MD Physical Therap y 09/09/2020 01:00:00 PM EST [facility] ([facility]) Outpatient Attender: Dianne [email or web address] 12:00:00 AM EDT - 08/19/2020 11:05:35 AM EDT [facility] Outpatient Attender: Alycia Ann MD Physical Therap y 07/05/2020 09:45:00 AM EDT [facility] ([facility]) Outpatient Attender: Alycia Ann MD Physical Therap y 02/16/2020 11:00:00 AM EDT [facility] ([facility]) [facility] [address] [place] [phone] 12/31/2019 12:00:00 AM EDT eCW1 ([facility]) Outpatient Referrer: Tu Oglesby DO 10/29/2019 11:48:00 AM EST [facility] Outpatient Attender: Alycia Ann MD Physical Therap y 10/27/2019 12:00:00 PM EST [facility] ([facility]) Outpatient Attender: Alycia Ann MD Physical Therap y 09/29/2019 07:00:00 AM EST [facility] ([facility]) Outpatient Attender: ELTON mckinney 09/14/2019 04:25:00 PM EST [facility] ([facility]) Medications Medication Brand Name Start Date Product Form Dose Route Admi nistrative Instructions Pharmacy Instructions Status Indications Reaction Description Data Source(s) 50 mg 10/28/2020 12:00:00 AM EST tablet extended release 24 hr 180 TAKE ONE TABLET BY MOUTH TWICE A DAY TAKE ONE TABLET BY MOUTH TWICE A DAY SOLD: 10/29/2020 [facility] 24 HR metoprolol succinate 50 MG Extende d Release Oral Tablet metoprolol succinate (TOPROL-XL) 50 MG 24 hr tablet metoprolol succinate (TOPROL-XL) 50 MG 24 hr tablet 10/20/2020 12:00:00 AM EST 50 mg Oral activ e Take 1 tablet (50 mg total) by mouth 2 (two) times a day [facility] 4 % 10/18/2020 12:00:00 AM EST liquid 118 USE IN SHOWER ONCE DAILY FOR 5 DAYS BEFORE SURGERY USE IN SHOWER ONCE DAILY FOR 5 DAYS BEFORE SURGERY MARIA ANTONIA [facility] chlorhexidine gluconate 40 MG/ML Medicated Liquid Soap [Hibi cledayton] Hibiclens 10/17/2020 12:00:00 AM EST active [facility] ([facility]) Mupirocin 0.02 MG/MG Topical Ointment mupirocin (BACTR OBAN) 2 % ointment mupirocin (BACTROBAN) 2 % ointment 10/17/2020 12:00:00 AM EST active [facility] Mupirocin 0.02 MG/MG Topical Ointment Mupirocin 10/17/2020 12:00:00 AM EST [facility] 2 % 10/17/2020 12:00:00 AM EST ointment 22 APPLY A PEA SIZED AMOUNT TO NASAL PASSAGES THREE TIMES A DAY FOR 5 DAYS PRIOR TO SURGERY APPLY A PEA SIZED AMOUNT TO NASAL PASSAGES THREE TIMES A DAY FOR 5 DAYS PRIOR TO SURGERY SOLD: 10/19/2020 [facility] 50 mg 10/06/2020 12:00:00 AM EST tablet extended release 24 hr 30 TAKE ONE TABLET BY MOUTH EVERY DAY TAKE ONE TABLET BY MOUTH EVERY DAY SOLD: 10/06/2020 [facility] 24 HR metoprolol succinate 50 MG Extende d Release Oral Tablet metoprolol succinate (TOPROL-XL) 50 MG 24 hr tablet metoprolol succinate (TOPROL-XL) 50 MG 24 hr tablet 10/06/2020 12:00:00 AM EST 50 mg Oral abort ed Take 1 tablet (50 mg total) by mouth daily [facility] 24 HR metoprolol succinate 50 MG Extende d Release Oral Tablet metoprolol succinate (TOPROL-XL) 50 MG 24 hr tablet metoprolol succinate (TOPROL-XL) 50 MG 24 hr tablet 10/06/2020 12:00:00 AM EST 25 mg Oral abort ed Take 0.5 tablets (25 mg total) by mouth daily [facility] 5 mg 08/20/2020 12:00:00 AM EDT tablet 90 TAKE ONE TABLET BY MOUTH EVERY DAY TAKE ONE TABLET BY MOUTH EVERY DAY SOLD: 08/22/2020 [facility] Lisinopril 5 MG Oral Tablet lisinopril (PRINIVIL,ZESTR IL) 5 MG tablet lisinopril (PRINIVIL,ZESTRIL) 5 MG tablet 08/19/2020 12:00:00 AM EDT 5 mg O ral aborted Essential hypertension Take 1 tablet (5 mg total ) by mouth daily [facility] Essential hypertension 40 mg 08/16/2020 12:00:00 AM EDT capsule,delayed release (DR/EC) 90 TAKE ONE CAPSULE BY MOUTH EVERY DAY TAKE ONE CAPSULE BY MOUTH EVERY DAY SOLD: 08/17/2020 [facility] atorvastatin 10 MG Oral Tablet ATORVASTATIN CALCIUM 08/16/2020 1 2:00:00 AM EDT tablet 90 TAKE ONE TABLET BY MOUTH EVERY D AY TAKE ONE TABLET BY MOUTH EVERY DAY SOLD: 08/17/2020 [facility] Atenolol 50 MG Oral Tablet ATENOLOL 06/30/2020 12:00:00 AM EDT tablet 90 TAKE ONE TABLET BY MOUTH EVERY DAY TAKE ONE TABLET BY MOUTH EVERY DAY SOLD: 07/01/2020 [facility] 25-25 mg 06/29/2020 12:00:00 AM EDT tablet 90 TAKE ONE TABLET BY MOUTH EVERY DAY DIRECTED TAKE ONE TABLET BY MOUTH EVERY DAY DIRECTED SOLD: 0 06/30/2020 [facility] Hydrochlorothiazide 25 MG / Spironolacto ne 25 MG Oral Tablet spironolactone- hydrochlorothiazide (ALDACTAZIDE) 25-25 MG per tablet spironolactone- hydrochlorothiazide (ALDACTAZIDE) 25-25 MG per tablet 06/29/2020 12:00:00 AM EDT 0.5 {tbl} Oral active Take 0.5 table ts by mouth daily [facility] 50 mg 03/10/2020 12:00:00 AM EDT tablet 90 TAKE ONE TABLET BY MOUTH EVERY DAY TAKE ONE TABLET BY MOUTH EVERY DAY SOLD: 03/11/2020 [facility] 40 mg 01/27/2020 12:00:00 AM EDT capsule,delayed release (DR/EC) 90 TAKE ONE CAPSULE BY MOUTH EVERY DAY TAKE ONE CAPSULE BY MOUTH EVERY DAY SOLD: 05/05/2020 [facility] 40 mg 01/27/2020 12:00:00 AM EDT capsule,delayed release (DR/EC) 90 TAKE ONE CAPSULE BY MOUTH EVERY DAY TAKE ONE CAPSULE BY MOUTH EVERY DAY SOLD: 01/27/2020 [facility] Acetaminophen 325 MG / Hydrocodone Bitartrate 5 MG Ora l Tablet Hydrocodone-Acetaminophen 12/01/2019 12:00:00 AM EST active [facility] ([facility]) 5-325 mg 12/01/2019 12:00:00 AM EST tablet 30 TAKE 1 TO 2 TABLETS BY MOUTH EVERY 4 TO 6 HOURS NEEDED FOR PAIN AFTER SURGERY, MAXIMUM DAILY DOSE = 6 TABLETS TAKE 1 TO 2 TABLETS BY MOUTH EVERY 4 TO 6 HOURS NEEDED FOR PAIN AFTER SURGERY, MAXIMUM DAILY DOSE = 6 TABLETS SOLD: 12/01/2019 [facility] 25-25 mg 11/04/2019 12:00:00 AM EST tablet 90 TAKE ONE TABLET BY MOUTH EVERY DAY DIRECTED TAKE ONE TABLET BY MOUTH EVERY DAY DIRECTED SOLD: 0 02/11/2020 [facility] 10 mg 11/04/2019 12:00:00 AM EST tablet 90 TAKE ONE TABLET BY MOUTH EVERY DAY TAKE ONE TABLET BY MOUTH EVERY DAY SOLD: 11/05/2019 [facility] 10 mg 11/04/2019 12:00:00 AM EST tablet 90 TAKE ONE TABLET BY MOUTH EVERY DAY TAKE ONE TABLET BY MOUTH EVERY DAY SOLD: 02/03/2020 [facility] 25-25 mg 11/04/2019 12:00:00 AM EST tablet 90 TAKE ONE TABLET BY MOUTH EVERY DAY DIRECTED TAKE ONE TABLET BY MOUTH EVERY DAY DIRECTED SOLD: 0 11/05/2019 [facility] 50 mg 09/10/2019 12:00:00 AM EST tablet 90 TAKE ONE TABLET BY MOUTH EVERY DAY TAKE ONE TABLET BY MOUTH EVERY DAY SOLD: 12/09/2019 [facility] 50 mg 09/10/2019 12:00:00 AM EST tablet 90 TAKE ONE TABLET BY MOUTH EVERY DAY TAKE ONE TABLET BY MOUTH EVERY DAY SOLD: 09/11/2019 [facility] 40 mg 08/04/2019 12:00:00 AM EDT capsule,delayed release (DR/EC) 90 TAKE ONE CAPSULE BY MOUTH EVERY DAY TAKE ONE CAPSULE BY MOUTH EVERY DAY SOLD: 11/05/2019 [facility] Atenolol 50 MG Oral Tablet atenolol (TENORMIN) 50 MG t ablet atenolol (TENORMIN) 50 MG tablet 50 mg Oral aborted Take 50 mg by mouth daily [facility] SPIRONOLACTONE-HCTZ PO 1 {tbl} Oral aborted Take 1 tablet by mouth daily [facility] Vitamin B 12 1 MG Oral Tablet vitamin B-12 (CYANOCOBAL QUEZADA) 1000 MCG tablet vitamin B-12 (CYANOCOBALAMIN) 1000 MCG tablet 1000 ug Oral aborted Take 1,000 mcg by mouth [facility] Insurance Providers Payer name Policy type / Coverage type Policy ID Covered alliance party ID Covered alliance party's relationship to kearney Policy [place] Plan Information BCBS OLIVRE JONES DIV [id number] [id number] MEDICARE [id number] SP [id number] [facility] [id number] [id number] [facility] [id number] EXCELLUS BCBS 07 MEDICARE [id number] EXCELLUS BCBS [id number] Laura YLS [id number] MEDICARE [id number] Laura [id number] [id number] MEDICARE C [id number] S [id number] [facility] O [id number] S [id number] BCBS EMPIRE ROBERT DIV UNAVAILABLE UNAVAILABLE MEDICARE [id number] SP [id number] B MEDICARE [id number] SP [id number] [facility] [id number] [id number] BCBS EMPIRE [place] DIV [id number] BCBS EMPIRE [place]ERT DIV [id number] [facility] Employees [place] [facility] Other 0 Family Dependent [place] 0 Medicare Part B [facility] Other 0 Se lf 0 EXCELLUS BCBS [id number] Laura [id number] MEDICARE [id number] SP [id number] MEDICARE [id number] SP [id number] [place] [id number] Self [id number] [place] United Healthcare Medigap Part B [id number] Family Dep endent [id number] [place] Primary [id number] Self [id number] United Healthcare [place] Medigap Part B [id number] [place] Primary [id number] Self [id number] [place] B [id number] Self [id number] [place] [employer] Medigap Part B [id number] [place] Primary [id number] Self [id number] [place] [id number] Self [id number] [place] [employer] Medigap Part B [id number] [place] Primary [id number] Self [id number] [place] Med[place] Part B [id number] Self [id number] [place] [employer] Medigap Part B [id number] [place] Primary [id number] Self [id number] [place] Med[place] Part B [id number] Self [id number] [place] [employer] Medigap Part B [id number] [place] Primary [id number] Self [id number] [place] Med[place] Part B [id number] Self [id number] [place] [employer] Healthcare Medigap Part B [id number] [place] Primary [id number] Self [id number] [place] Med[place]ap Part B [id number] Self [id number] [place] [employer] Medigap Part B [id number] [place] [id number] Self [id number] [place] [employer] Medigap Part B [id number] [place] Primary [id number] Self [id number] MEDICARE C [id number] S [id number] [place] [employer] Medigap Part B [id number] [place] Primary [id number] Self [id number] BCBS EMPIRE ROBERT DIV [id number] HU2 [id number] [place] [employer] Medigap Part B [id number] [place] Primary [id number] Self [id number] [place] [employer] Medigap Part B [id number] [place] Primary [id number] Self [id number] UNITED HEALTHCARE [id number] S [id number] BCBS EMPIRE [id number] S [id number] [facility] MEDICARE DIVISION [id number] S [id number] [place]ICARE [place] [id number] S [id number] [place] [employer] Medigap Part B [id number] [place] Primary [id number] Self [id number] [place] [employer] Medigap Part B [id number] [place] Primary [id number] Self [id number] United [employer] [place] Medigap Part B [id number] [place] Primary [id number] Self [id number] [place] [employer] Medigap Part B [id number] [place] Primary [id number] Self [id number] [place] [employer] Medigap Part B [id number] [place] Primary [id number] Self [id number] [place] [employer] Medigap Part B [id number] [place] Primary [id number] Self [id number] [place] [employer] Medigap Part B [id number] [place] Primary [id number] Self [id number] [place] [employer] Medigap Part B [id number] [place] Primary [id number] Self [id number] [place] [employer] Medigap Part B [id number] [place] Primary [id number] Self [id number] [place] [employer] Medigap Part B [id number] [place] Primary [id number] Self [id number] [place] [employer] Medigap Part B [id number] [place] Primary [id number] Self [id number] [place] [employer] Medigap Part B [id number] [place] Primary [id number] Self [id number] [place] [employer] Medigap Part B [id number] [place] Primary [id number] Self [id number] [place] [employer] Medigap Part B [id number] [place] Primary [id number] Self [id number] EMPIRE (STATE EMP) O [id number] P [id number] [place] [employer] Medigap Part B [id number] [place] Primary [id number] Self [id number] BCBS EMPIRE ROBERT DIV [id number] HU2 [id number] UNITED HEALTH[employer]ARE [id number] HU2 [id number] [place] [employer] Medigap Part B [id number] [place] Primary [id number] Self [id number] [employer] [place] Medigap Part B [place] Primary Self [place] [employer] Medigap Part B [place] Medicare Primary Self Emp/[employer] Medigap Part B Family Depend ent [place] Primary Self [id number] Problems, Conditions, and Diagnoses Code Display Name Description Problem Type Effective Dates Data Source(s) Z01.810 Preoperative cardiovascular examination Preoperative cardiovascular examination [id number] 10/20/2020 12:00:00 AM EST [facility] R55 Syncope and collapse Syncope and collapse [id number] 08/19/2020 12:00:00 AM EDT [facility] I10 Essential hypertension Essential hypertension [id number] 08/19/2020 12:00:00 AM EDT [facility] E78.2 Mixed hyperlipidemia Mixed hyperlipidemia [id number] 08/19/2020 12:00:00 AM EDT [facility] R07.89 Other chest pain Other chest pain [id number] 08/19/2020 12 :00:00 AM EDT [facility] D23.9 [id number] Dermatofibroma Problem 12/31/2019 12:00:00 A M EDT eCW1 ([facility]) Z01.810 Encounter for preprocedural cardiovascul ar examination Encounter for preprocedural cardiovascul Diagnosis 10/20/2020 01:31:15 PM EST [facility] I47.1 Supraventricular tachycardia Supraventricular tachycar bj Diagnosis 10/20/2020 01:31:15 PM EST [facility] R07.89 Other chest pain Other chest pain Diagnosis 10/20/2020 01 :31:15 PM EST [facility] E78.2 Mixed hyperlipidemia Mixed hyperlipidemia Diagnosis 10/06/2020 07:56:22 AM EST [facility] I10 Essential (primary) hypertension Essential (primary) h ypertension Diagnosis 10/06/2020 07:56:22 AM EST [facility] R55 Syncope and collapse Syncope and collapse Diagnosis 08/19/2020 09:52:59 AM EDT [facility] Surgeries/Procedures Procedure Description Date Indications Data Source(s) ECG ROUTINE ECG W/LEAST 12 LDS W/I&R POCT AMB EKG Routine 10/06/2020 9:13 AM EST Supraventricular tachycardia 10/06/2020 02:13:00 PM EST Supr aventricular tachycardia [facility] Supraventricular tachycardia POCT AMB EKG POCT AMB EKG Routine 08/19/2020 10:22 AM EDT Other chest pain Mixed hyperlipidemia 08/19/2020 02:22:00 PM EDT Mixed hyperl ipidemiaOther chest pain [facility] Mixed hyperlipidemia Other chest pain ARTHROCENTESIS ASPIR&/INJECTION MAJOR JT/BURSA 020 12:00:00 AM EDT [facility] ([facility]) INJECTION 1 TENDON SHEATH/LIGAMENT APONEUROSIS 020 12:00:00 AM EDT [facility] ([facility]) ARTHROCENTESIS ASPIR&/INJECTION MAJOR JT/BURSA 020 12:00:00 AM EDT [facility] ([facility]) Office Visit, Est Pt., Level 4 PC 12/31/2019 12:00:00 AM EDT eCW1 ([facility]) NEUROPLASTY &/TRANSPOS MEDIAN NRV CARPAL TUNNEL 2019 12:00:00 AM EST [facility] ([facility]) RADEX SPINE LUMBOSACRAL MINIMUM 4 VIEWS 09/29/2019 12: 00:00 AM EST [facility] ([facility]) RADIOLOGIC EXAMINATION KNEE 3 VIEWS 09/29/2019 12:00:0 0 AM EST [facility] ([facility]) SIMPLE REPAIR SCALP/NECK/AX/GENIT/TRUNK 2.5CM/< 2018 12:00:00 AM EST [facility] ([facility]) Results ID Date Data Source [id number] 10/30/2020 09:00:00 AM EST [facility] Name Value Range Interpretation Code Description Data Subha rce(s) Supporting Document(s) SARS coronavirus 2 RNA Not Detected [facility] [place] This lab was ordered by [facility] and reported by [facility]. ID Date Data Source [id number] 10/26/2020 08:37:00 AM EST [facility] ([facility]) Name Value Range Interpretation Code Description Data Subha rce(s) Supporting Document(s) Erythrocyte sedimentation rate by Westergren method 15 mm/hr 0-30 [facility] ([facility]) ID Date Data Source [id number] 10/26/2020 08:37:00 AM EST [facility] ([facility]) Name Value Range Interpretation Code Description Data Subha rce(s) Supporting Document(s) White Blood Count 3.7 10 4.0-10.0 [facility] ([facility] ) Red Blood Count 4.50 10 4.00-5.40 [facility] ([facility]) Hemoglobin 12.2 g/dL 12.0-15.5 [facility] ([facility] ) Mean Corpuscular Volume 83.8 fl 80.0-96.0 M EDENT ([facility] ) Hematocrit 37.7 % 36.0-47.0 [facility] ([facility]) Mean Corpuscular Hemoglobin 27.1 pg 27.0-33.0 [facility] ([facility] ) Red Cell Distribution Width 13.2 % 11.5-14.5 [facility] ([facility] ) Mean Corpuscular HGB Conc 32.4 g/dL 32.0-36.5 [facility] ([facility]) Platelet Count, Automated 199 10 150-450 [facility] ([facility] ) Nucleated Red Blood Cell % 0.0 % 0-0 MED ENT ([facility] ) ID Date Data Source [id number] 10/26/2020 08:37:00 AM EST [facility] ([facility]) Name Value Range Interpretation Code Description Data Subha rce(s) Supporting Document(s) Glucose, Fasting 96 mg/dL 70-100 [facility] ([facility]) Blood Urea Nitrogen 18 mg/dL 7-18 [facility] ([facility]) Glomerular Filtration Rate Laboratory test result [facility] ([facility]) <content>Units are mL/min/1.73 m2</content>
<content></content>
<content>Chronic Kidney Disease Staging per NKF:</content>
<content></content>
<content>Stage I & II GFR >=60 Normal to Mildly Decreased</content>
<content>Stage III GFR 30- 59 Moderately Decreased</content>
<content>Stage IV GFR 15-29 Severely Decreased</content>
<content>Stage V GFR <15 Very Little GFR Left</content>
<content>ESRD GFR <15 on BUDGET SPECIALIST</content>
<content></content> Creatinine For GFR 0.95 mg/dL 0.55-1.30 [facility] ([facility] ) Sodium Level 141 meq/L 136-145 [facility] ([facility]) Potassium Serum 4.0 meq/L 3.5-5.1 [facility] ([facility] ) Chloride Level 108 meq/L 98-107 [facility]) Anion Gap 6 meq/L 8-16 [facility] Carbon Dioxide Level 27 meq/L 21-32 [facility] Ast/Sgot 20 U/L 7-37 [facility] ([facility]) Alt/SGPT 36 U/L 12-78 [facility] ([facility]) Calcium Level 9.3 mg/dL 8.8-10.2 [facility]) Alkaline Phosphatase 78 U/L 45-117 [facility]) Bilirubin,Total 0.5 mg/dL 0.2-1.0 [facility] ([facility]) Total Protein 6.4 GM/DL 6.4-8.2 [facility] ([facility]) Albumin/Globulin Ratio 1.6 1.2-2.2 [facility] ([facility]) Albumin 3.9 GM/DL 3.2-5.2 [facility] ([facility]) ID Date Data Source [id number] 10/26/2020 08:37:00 AM EST [facility] ([facility]) Name Value Range Interpretation Code Description Data Subha rce(s) Supporting Document(s) Prothrombin Time 12.7 s 12.5-14.3 [facility] ([facility]) Inr 0.93 [facility] ([facility]) THERAPUTIC HUMAN INR VALUES INDICATIONS NORMAL RANGES PROPHYLAXIS/TREATMENT OF: VENOUS THROMBOSIS 2.0-3.0 PULMONARY EMBOLISM 2.0-3.0 PREVENTION OF SYSTEMIC EMBOLISM FROM: TISSUE HEART VALVES 2.0-3.0 ACUTE MYOCARDIAL INFARCTION 2.0-3.0 VALVULAR HEART DISEASE 2.0-3.0 ATRIAL FIBRILLATION 2.0-3.0 MECHANICAL VALVES(HIGH RISK) 2.5-3.5 RECURRENT MYOCARDIAL INFARCTION 2.5-3.5 ID Date Data Source [id number] 10/12/2020 09:32:55 AM EST [facility] Name Value Range Interpretation Code Description Data Subha rce(s) Supporting Document(s) &PDF [facility] [id number] waW [file] [id number] ATTENDANT [file] [id number]= ID Date Data Source [id number] 09/12/2020 10:37:00 AM EST [facility] ([facility]) Name Value Range Interpretation Code Description Data Subha rce(s) Supporting Document(s) Laboratory test finding (navigational concept) Laboratory test result [facility] ([facility]) ID Date Data Source [id number] 10/29/2019 04:25:00 PM EST [facility] ([facility]) Name Value Range Interpretation Code Description Data Subha rce(s) Supporting Document(s) Laboratory test finding (navigational concept) <pending> [facility] ([facility]) Procedure Social History Code Duration Value Status Description Data Source(s ) Alcohol intake 10/20/2020 12:00:00 AM EST Yes completed [facility] Smoking 10/20/2020 12:00:00 AM EST Former smoker completed Former smoker [facility] Alcohol intake 10/06/2020 12:00:00 AM EST Yes completed [facility] Smoking 10/06/2020 12:00:00 AM EST Former smoker completed Former smoker [facility] Alcohol intake 08/19/2020 12:00:00 AM EDT Yes completed [facility] Smoking 08/19/2020 12:00:00 AM EDT Former smoker completed Former smoker [facility] Smoking 12/10/2019 12:00:00 AM EST Patient is a former smoker completed Patient is a former smoker [facility] ([facility]) Vital Signs ID Date Data Source UNK Name Value Range Interpretation Code Description Data Source(s) Respiratory rate 14 /min 14 /min [facility] ( [facility]) Body mass index (BMI) [Ratio] 29.1 kg/m2 29.1 k g/m2 [facility] ([facility]) Body weight 173.50 [lb_av] 173.50 [lb_av] MEDEN T ([facility]) Body height 64.75 [in_i] 64.75 [in_i] [facility] ([facility]) 5'4.75" Body temperature 96.4 [degF] 96.4 [degF] [facility] ([facility]) Heart rate 67 /min 67 /min [facility] ([facility]) Diastolic blood pressure 85 mm[Hg] 85 mm[Hg] [facility] ([facility]) Systolic blood pressure 136 mm[Hg] 136 mm[Hg] M EDENT ([facility]) Oxygen saturation in Arterial blood by Pulse oximetry 98 % 98 % [facility] Body mass index (BMI) [Ratio] 30.82 kg/m2 30.82 kg/m2 [facility] Body weight 78.926 kg 78.926 kg [facility] Body height 160 cm 160 cm [facility] Heart rate 73 /min 73 /min [facility] Diastolic blood pressure 66 mm[Hg] 66 mm[Hg] [facility] Systolic blood pressure 128 mm[Hg] 128 mm[Hg] [facility] Oxygen saturation in Arterial blood by Pulse oximetry 98 % 98 % [facility] Body mass index (BMI) [Ratio] 30.72 kg/m2 30.72 kg/m2 [facility] Body weight 78.654 kg 78.654 kg [facility] Body height 160 cm 160 cm [facility] Heart rate 72 /min 72 /min [facility] Diastolic blood pressure 92 mm[Hg] 92 mm[Hg] [facility] Systolic blood pressure 152 mm[Hg] 152 mm[Hg] [facility] Diastolic blood pressure 70 mm[Hg] 70 mm[Hg] [facility] Systolic blood pressure 140 mm[Hg] 140 mm[Hg] [facility] Oxygen saturation in Arterial blood by Pulse oximetry 98 % 98 % [facility] Body mass index (BMI) [Ratio] 31.07 kg/m2 31.07 kg/m2 [facility] Body weight 79.561 kg 79.561 kg [facility] Body height 160 cm 160 cm [facility] Heart rate 57 /min 57 /min [facility] Diastolic blood pressure 78 mm[Hg] 78 mm[Hg] eCW1 ([facility]) Systolic blood pressure 124 mm[Hg] 124 mm[Hg] e CW1 ([facility]) Body mass index (BMI) [Ratio] 29.29 kg/m2 29.29 kg/m2 W1 ([facility]) Body height 63.5 [in_us] 63.5 [in_us] eCW1 ([facility]) Body weight Measured 168 [lb_av] 168 [lb_av] eC W1 ([facility]) Body temperature 97.8 [degF] 97.8 [degF] MEDENT ([facility]) Body mass index (BMI) [Ratio] 31.9 kg/m2 31.9 k g/m2 [facility] ([facility]) Body height 63 [in_i] 63 [in_i] [facility] ([facility]) 5'3" Body weight 180.00 [lb_av] 180.00 [lb_av] MEDEN T ([facility]) Body temperature 98.6 [degF] 98.6 [degF] MEDENT ([facility]) Oxygen saturation in Arterial blood by Pulse oximetry 97 % 97 % [facility] ([facility]) Respiratory rate 20 /min 20 /min [facility] ( [facility]) Heart rate 70 /min 70 /min [facility] ([facility]) Body mass index (BMI) [Ratio] 31.9 kg/m2 31.9 k g/m2 [facility] ([facility]) Body height 63 [in_i] 63 [in_i] MEDENT ([facility]) 5'3" Body weight 180.00 [lb_av] 180.00 [lb_av] MEDEN T ([facility]) Body temperature 98.4 [degF] 98.4 [degF] MEDENT ([facility]) Oxygen saturation in Arterial blood by Pulse oximetry 97 % 97 % [facility] ([facility]) Respiratory rate 18 /min 18 /min [facility] ( [facility]) Heart rate 65 /min 65 /min MED[facility] ([facility]) Diastolic blood pressure 66 mm[Hg] 66 mm[Hg] [facility] Systolic blood pressure 135 mm[Hg] 135 mm[Hg] [facility] Patient Treatment Plan of Care Planned Activity Planned Date Details Description Data Source (s) 24 HR metoprolol succinate 50 MG Extended Release Oral Tablet 10/20/2020 12:00:00 AM [facility] Mupirocin 0.02 MG/MG Topical Ointment 10/17/2020 12:00:00 AM [facility] 24 HR metoprolol succinate 50 MG Extended Release Oral Tablet 10/06/2020 12:00:00 AM [facility] 24 HR metoprolol succinate 50 MG Extended Release Oral Tablet 10/06/2020 12:00:00 AM EST [facility] Lisinopril 5 MG Oral Tablet 08/19/2020 12:00:00 AM EDT [facility] Hydrochlorothiazide 25 MG / Spironolactone 25 MG Oral Tablet 06/29/2020 12:00:00 AM EDT [facility] Vitamin B 12 1 MG Oral Tablet [facility] Atenolol 50 MG Oral Tablet [facility] SPIRONOLACTONE-HCTZ PO [facility]
[2020-11-04] MEDS ORDERED: BUPIVACAINE HCL 0.25% 10ML VIAL As Ordered ONE (09:55)
[2020-11-04] MEDS ORDERED: TRANEXAMIC ACID 100 MG/ML 10ML VIAL As Ordered ONE (09:55)
[2020-11-04] MEDS ORDERED: ceFAZolin 1GM VIAL (J0690 PER 500MG) As Ordered ONE (09:56)
[2020-11-04] MEDS ORDERED: BUPIVACAINE LIPOSOME/PF 1.3% 20ML VIAL (13.3MG/ML)(EXPAREL)(C9290 PER1MG) As Ordered ONE (09:56)
[2020-11-04] MEDS ORDERED: EPINEPHrine INJ 1 MG/ML 1ML AMP As Ordered ONE (09:56)
[2020-11-04] MEDS ORDERED: fentaNYL 100 MCG/2 ML INJECTION (J3010) As Ordered ONE ×2 (10:17→10:56)
[2020-11-04] MEDS ORDERED: MIDAZOLAM INJ 2MG/2ML VIAL (J2250 PER 1MG) As Ordered ONE ×2 (10:17→10:56)
[2020-11-04] MEDS ORDERED: LIDOCAINE 2% 100MG/5ML SDV (FOR ANES.) As Ordered ONE (10:18)
[2020-11-04] MEDS ORDERED: ACETAMINOPHEN 1000MG 100ML IV BTL (OFIRMEV) (J0131 PER 10MG) As Ordered ONE (10:26)
[2020-11-04] MEDS ORDERED: ROPIvacaine 0.5% 30ML INJECTION (J2795 PER 1MG) As Ordered ONE (10:55)
[2020-11-04] MEDS ORDERED: dexameTHASONE 10MG/1ML VIAL PRES.FREE (J1100 PER 1MG) As Ordered ONE (10:55)
[2020-11-04] MEDS ORDERED: LIDOCAINE 1% MDV 20ML VIAL As Ordered ONE (10:56)
[2020-11-04] MEDS: fentaNYL 100 MCG/2 ML INJECTION (J3010) IV PRN ×2 (11:43→11:47)
[2020-11-04] MEDS: MIDAZOLAM INJ 2MG/2ML VIAL (J2250 PER 1MG) IV PRN ×2 (11:43→11:45)
[2020-11-04] MEDS ORDERED: ePHEDrine SULFATE 25 MG/5 ML(5MG/ML) SYRINGE As Ordered ONE (12:20)
[2020-11-04] MEDS ORDERED: PHENYLephrine 500MCG 5ML (100MCG/ML) SYRINGE As Ordered ONE (12:20)
[2020-11-04] MEDS ORDERED: ROPIvacaine 0.5% 30ML INJECTION (J2795 PER 1MG) XX ONE (12:30)
[2020-11-04] MEDS ORDERED: dexameTHASONE 10MG/1ML VIAL PRES.FREE (J1100 PER 1MG) XX ONE (12:30)
--- NOTE | 2020-11-04 13:56 | RO ---
OPERATIVE NOTE DATE OF OPERATION: 11/04/2020 PREOPERATIVE DIAGNOSIS: Left knee degenerative arthritis. POSTOPERATIVE DIAGNOSIS: Left knee degenerative arthritis. PROCEDURE: Left total knee arthroplasty using a size 5 cemented cruciate-retaining femoral component, size 4 tibial tray with a 5 mm rotator platform polyethylene insert, and a 35 mm polyethylene button. All the components were cemented. Prosthesis was made by [employer]. It was an [employer] knee. SURGEON: Michael Cantrell M.D. SET UP MECHANIC STAMPING MACHINES: RONNELL Freitas ANESTHESIA: Spinal with left femoral nerve block. COMPLICATIONS: None. ESTIMATED BLOOD LOSS: 20 mL. SPECIMENS: Joint surface. DESCRIPTION OF PROCEDURE: Antibiotics were given intravenously preoperatively, a successful left femoral nerve, and then a spinal anesthetic was induced. Tourniquet was placed to the left upper thigh and not inflated. The left lower extremity was carefully prepped and draped in the usual sterile fashion. The leg was then elevated and after appropriate time-out, the tourniquet was inflated. Then a longitudinal incision was made for a medial parapatellar approach. Bovee cautery was used to coagulate crossing vessels down to the deep fascia and then the arthrotomy was performed, and subperiosteal dissection around the proximal, medial, and lateral tibial plateau was performed. We everted the patella, then flexed the knee, and debrided the ACL. The drill was placed down the center of the femoral canal followed by the intramedullary silvano and the distal femoral cutting jig set at 9 mm resection level with 5 degree valgus for a left knee. The block was applied, pinned into position, and then the distal femoral cut was performed. The AP sizing jig measured for a size 5. Three degrees of external rotation was dialed in for a left knee, pins placed, 4:1 block applied, and the anterior-posterior chamfer cuts performed. The sulcus osteotomy jig was then applied and the sulcus osteotomy performed. We exposed the proximal tibia, used the extramedullary alignment jig for the tibia to be estimate being parallel to the mechanical access of the tibia, referencing off the medial tibial condyle. We centered at 4 mm resection level. The block was pinned into position, secondary check with extramedullary silvano confirmed that we appeared to be parallel to the mechanical access, and thus a proximal tibial osteotomy was performed. We then placed the lamina spread laterally and performed a complete medial meniscectomy debriding the posterior medial osteophytes. We then placed the lamina sales promotion manager medially and performed a complete lateral meniscectomy debriding the posterior and lateral osteophytes. The spacer block was applied and it was a bit snug with a 5. I did go back and shave a little bit more off the medial tibial condyle, where it was very sclerotic, after reapplying the tibial jig and this allowed better symmetry between flexion and extension and a 5 mm spacer block fit symmetrically both in flexion and extension. Thus, I felt this was the appropriate size polyethylene to utilize. We then exposed the proximal tibia, sized for a #4 tibial tray, which was pinned into position, followed by the reamer and the broach. The trial polyethylene was applied and the trial femoral component applied. We brought the knee into extension, everted the patella, perform a patellar osteotomy. Sized for a 35 button, lug hole was drilled, trial placed, and patellofemoral tracking was anatomic. We drilled the lug holes for the femur at this point. We then removed all the trial components and placed Exparel in the subperiosteal tissues around the distal femur and the proximal tibia. Rupal Betsy then mixed the cement on the back table, as I prepared the bony surfaces for cementing with a copious amount of pulsatile lavage irrigant solution. He was also critical to the success of this difficult procedure by helping to prepare the patient for surgery, help with the appropriate soft tissue retraction, help to manipulate the knee, help to flex and extend the knee as needed, help to mix the cement, and help close the wound amongst many other tasks to allow me to perform the operation smoothly, efficiently, and safely. After all the bony surfaces were thoroughly irrigated and dried, I cemented the tibial tray removing excess cement, placed the polyethylene cemented to the femoral component, and removed excess cement. Brought the knee into extension, everted the patella, and cemented the patella button place; held it with a clamp with the knee in full extension and then removed excess cement, and then held that position until the cement hardened. As we were awaiting this, we copiously pulsatile lavage irrigated out the knee joint and then, we made sure there was no cement extruding through the femoral notch. We then placed tranexamic acid in the depths of the wound. We then began closing the apex of the arthrotomy with two #1 PDS sutures, the medial parapatellar area was closed with a #1 PDS suture, and then we closed the capsule with a double-arm running #1 STRATAFIX. We then released the tourniquet, irrigated again, and closed the deep subdermal tissues with interrupted 2-0 PDS sutures. Skin was closed with oralia covered by Optifoam and dry sterile bulky dressing. She was then transferred to the recovery room in stable condition. There were no intraoperative complications.
--- NOTE | 2020-11-04 14:17 | REP ---
INDICATION: post op in pacu 2242 COMPARISON: None TECHNIQUE: Portable FINDINGS: Patient is status post TKR the femoral and tibial components of which are well seated and well approximated. The alignment is near anatomical. There is expected postoperative soft tissue swelling. There is an anterior midline skin staple line in place. IMPRESSION: As above. <Electronically signed by Jose Cordova > 11/04/20 [id number]
[2020-11-04] MEDS ORDERED: ACETAMINOPHEN TAB 650MG DOSE (2X325MG) PO PRN (14:30)
[2020-11-04] MEDS ORDERED: MORPHINE 4 MG/ML 1ML VIAL/SYRINGE (J2270) IV PRN (14:30)
[2020-11-04] MEDS ORDERED: ONDANSETRON 4MG/2ML VIAL IV PRN ×2 (14:30→14:45)
[2020-11-04] MEDS ORDERED: MORPHINE 2 MG/ML 1ML VIAL (J2270) IV PRN (14:30)
[2020-11-04] MEDS ORDERED: LR 1,000 ML IV SCH ×2 (14:30→14:45)
[2020-11-04] MEDS ORDERED: PERCOCET 5MG/325MG TAB PO PRN (14:30)
[2020-11-04] MEDS ORDERED: fentaNYL 100 MCG/2 ML INJECTION (J3010) IV PRN (14:45)
[2020-11-04] MEDS ORDERED: oxyCODONE 5MG TAB PO PRN (14:45)
[2020-11-04 15:40] VITALS: BP 145/75
--- NOTE | 2020-11-04 15:52 | CR.PDOC ---
General Date of Consultation: Nov 04, 2020 Consultation Chief complaint: Presented to [facility] for elective orthopedic procedure History of present illness: Patient is a 70-year-old female who presented to [facility] for an elective orthopedic procedure. She has received outpatient medical clearance from her primary care provider, Dr. Dickerson. Hospitalist services consulted for medical management postoperatively. Patient denies any headache, nausea, vomiting, chest pain, shortness breath, palpitations, abdominal pain, constipation, diarrhea, or urinary discomfort. They deny any recent fevers or chills. Reports that theyre weight and appetite have been unchanged. 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 Review of Systems: 10 point review of systems complete, all negative otherwise stated in HPI Physical exam: - Vitals: BP [135/73], HR [53], RR [18], Sat [100%RA], Temp [97.2F] - General: Lying in bed, No acute distress, Speaking in full sentences, AAOx3 - HEENT: NC, AT, PERRLA - CVS: RRR, +S1S2 - Lungs: Fair air entry bilaterally, No appreciable wheezing / rales / rhonchi - Abdomen: Soft, Non-distended, Non-tender - Extremities: No lower extremity edema, No calf tenderness - Neuro: No focal motor or sensory deficit - Skin: No visible rashes Labs: See below Imaging: See below EKG: See below Assessment and Plan: Total left knee arthroplasty (POD#0) - Presented to [facility] for elective orthopedic procedure - Has received outpatient medical clearance from her primary care provider, Dr. Dickerson - Pain control, anticoagulation and physical therapy at the direction of orthopedic surgery Hx of SVT s/p ablation (07/2019) - c/w Metoprolol HTN - c/w Metoprolol - Will resume Spironolactone within 24 hours (pending AM labs) DLP - c/w Atorvastatin GERD - c/w Omeprazole DVT prophylaxis - As per primary orthopedic team Vital Signs/I&O Vital Signs Date Time Temp Pulse Resp B/P (MAP) Pulse Ox O2 Delivery O2 Flow Rate FiO2 11/04/20 15:10 97.2 53 18 135/73 (93) 100 Room Air 11/04/20 11:55 3 Allergies Coded Allergies: latex (Verified Allergy, Unknown, rash/blister, 11/04/20) Home Medications Scheduled Ascorbic Acid (Vitamin C) 500 Mg Tablet, 1,000 MG PO DAILY, (Reported) Atorvastatin Calcium (Atorvastatin Calcium) 10 Mg Tablet, 10 MG PO DAILY, (Reported) Cholecalciferol (Vitamin D3) (Vitamin D3) 1,000 Unit Tablet, Unknown Dose PO DAILY, (Reported) Metoprolol Tartrate (Metoprolol Tartrate) 25 Mg Tablet, 50 MG PO BID, (Reported) Multivitamin (Multivitamin) 1 Each Tablet, 1 EACH PO DAILY, (Reported) Omeprazole (Omeprazole) 40 Mg Cap, 40 MG PO DAILY, (Reported) Spironolact/Hydrochlorothiazid (Spironolactone-Hctz 25-25 Tab) 1 Ea Tab, 1 TAB PO DAILY, (Reported) BELLA FOX MD Nov 04, 2020 15:52
[2020-11-04 16:10] VITALS: BP 165/90
[2020-11-04] MEDS: PERCOCET 5MG/325MG TAB PO PRN ×2 (16:21→22:51)
[2020-11-04 17:10] VITALS: BP 147/80
[2020-11-04 18:10] VITALS: BP 127/65
[2020-11-04 19:10] VITALS: BP 122/60
[2020-11-04] MEDS: ceFAZolin SOD 2 GM in IV 1 EA IV SCH (21:07)
[2020-11-04] MEDS: METOPROLOL TART 50 MG TAB PO SCH (21:07)
[2020-11-04 21:51] VITALS: BP 147/83
[2020-11-05 01:39] VITALS: BP 103/53
[2020-11-05] MEDS: ceFAZolin SOD 2 GM in IV 1 EA IV SCH ×2 (03:56→13:53)
[2020-11-05] MEDS: PERCOCET 5MG/325MG TAB PO PRN ×3 (04:57→15:34)
[2020-11-05 05:48] VITALS: BP 101/53
[2020-11-05] MEDS ORDERED: ECOT81TA5 PO (06:31)
[2020-11-05] MEDS ORDERED: PERC5TAB12 PO (06:31)
[2020-11-05 06:52] LABS: BASO % 0.1 % (0.0-1.0); HEMATOCRIT 30.9 % (36.0-47.0); HEMOGLOBIN 10.1 g/dl (12.0-15.5); LYMPH % 10.4 % (24.0-44.0); MEAN CORPUSCULAR HEMOGLOBIN 26.8 pg (27.0-33.0); MEAN CORPUSCULAR HGB CONC 32.7 g/dl (32.0-36.5); MONO # 0.6 10^3/uL (0.0-0.8); MONO % 6.5 % (0.0-5.0); NEUTROPHILS # 8.2 10^3/uL (1.5-8.5); NEUTROPHILS % 82.5 % (36.0-66.0); PLATELET COUNT, AUTOMATED 196 10^3/uL (150-450); RED BLOOD COUNT 3.77 10^6/uL (4.00-5.40); WHITE BLOOD COUNT 9.9 10^3/uL (4.0-10.0)
[2020-11-05 07:22] LABS: ALBUMIN 3.2 GM/DL (3.2-5.2); ALT/SGPT 28 U/L (12-78); BILIRUBIN,TOTAL 0.3 MG/DL (0.2-1.0); BLOOD UREA NITROGEN 13 MG/DL (7-18); CALCIUM LEVEL 8.9 MG/DL (8.8-10.2); CARBON DIOXIDE LEVEL 26 MEQ/L (21-32); CHLORIDE LEVEL 109 MEQ/L (98-107); CREATININE FOR GFR 0.94 MG/DL (0.55-1.30); GLOMERULAR FILTRATION RATE > 60.0 (>39); GLUCOSE, FASTING 123 MG/DL (70-100); MAGNESIUM LEVEL 1.9 MG/DL (1.8-2.4); SODIUM LEVEL 141 MEQ/L (136-145)
[2020-11-05] MEDS ORDERED: ASPIRIN 81 MG ENTERIC TAB PO SCH (09:00)
[2020-11-05] MEDS ORDERED: ATORVASTATIN 10 MG TAB PO SCH (09:00)
[2020-11-05] MEDS ORDERED: MOM 30ML SUSPENSION UDC PO SCH (09:00)
[2020-11-05] MEDS ORDERED: MIRALAX *UNIT DOSE* 17GM PACKET PO SCH (09:00)
[2020-11-05] MEDS ORDERED: OMEPRAZOLE 20 MG CAP PO SCH (09:00)
--- NOTE | 2020-11-05 09:24 | REP ---
INDICATION: Weakness R sided. COMPARISON: 06/21/2019. TECHNIQUE: CT BRAIN PERFORMED IN THE AXIAL PLANE. CORONAL RECONSTRUCTION IMAGES ARE PERFORMED. FINDINGS: There is mild atrophy. There is no midline shift or mass effect. Duke-white differentiation is well maintained. There is no acute intracranial hemorrhage, or extra-axial fluid collection. Bone window examination is unremarkable. Mastoid air cells and visualized paranasal sinuses are well aerated. IMPRESSION: NEGATIVE NONCONTRAST CT BRAIN. <Electronically signed by Chetan Duke > 11/05/20 0920
[2020-11-05 11:16] VITALS: BP 135/69
[2020-11-05] MEDS: METOPROLOL TART 50 MG TAB PO SCH (11:16)
--- NOTE | 2020-11-05 13:47 | REPVR ---
PROCEDURE INFORMATION: Exam: MR Head Without Contrast Exam date and time: 11/05/2020 11:09 AM Age: 70 years old Clinical indication: Weakness, extremity; Left; Additional info: L sided weakness TECHNIQUE: Imaging protocol: MR of the head without contrast. COMPARISON: CT Head without contrast 11/05/2020 9:06 AM FINDINGS: Brain: There is mild generalized cerebral volume loss and a small number of scattered foci of white matter T2 hyperintensity, nonspecific but commonly secondary to chronic small vessel ischemic change. No acute ischemic infarction. No acute intracranial hemorrhage. Small amount of cystic encephalomalacia versus a small arachnoid cyst in the right middle cranial fossa. Cerebral ventricles: No ventriculomegaly. Bones/joints: Unremarkable. Paranasal sinuses: Mild paranasal sinus mucosal thickening. Mastoid air cells: No mastoid effusion. Orbital cavity: Bilateral lens replacements. Soft tissues: Unremarkable. IMPRESSION: No acute intracranial abnormality. Electronically signed by: Kee Brito On 11/05/2020 13:46:55 PM
--- NOTE | 2020-11-05 14:31 | IPNPDOC ---
Text Note Date of Service The patient was seen on 11/05/20. NOTE Subjective: Patient is a 70-year-old female who presented to [facility] for an elective orthopedic procedure. She has received outpatient medical clearance from her primary care provider, Dr. Dickerson. Hospitalist services consulted for medical management postoperatively. Patient was seen and examined at the bedside. Patient reported that 2 AM she was woke up and was getting up out of bed on to the commode. She reported losing balance and falling toward her left side; reported that she was having weakness of her left arm and left leg. Patient did not fall. However, she went back to sleep. She didn't make a note of it until this morning. Patient denies any chest pain, shortness breath, palpitations, nausea, vomiting, abdominal pain or diarrhea. Patient will be working with physical therapy today. Objective: Vitals (See below) General: Lying in bed, appears comfortable, AAOx3 HEENT: NC, AT CVS: +S1S2 Lungs: Fair air entry b/l, no appreciable wheezing, rhonchi or rales Abdomen: Soft, nondistended and nontender Extremities: No evidence of edema, - Calf tenderness Assessment and plan: Total left knee arthroplasty (POD#1) - Presented to [facility] for elective orthopedic procedure - Has received outpatient medical clearance from her primary care provider; Dr. Dickerson - Pain control, anticoagulation and physical therapy at the direction of orthopedic surgery - Patient was working with physical therapy today Reported L sided weakness - CT and MRI brain negative for acute pathology - c/w ASA 81 - Will c/w PT Hx of SVT s/p ablation (07/2019) - c/w Metoprolol HTN - c/w Metoprolol - Will resume Spironolactone on discharge DLP - c/w Atorvastatin GERD - c/w Omeprazole DVT prophylaxis - As per primary orthopedic team VSTika, I+O VSTika, I+O Laboratory Tests 11/05/20 06:17 Vital Signs Date Time Temp Pulse Resp B/P (MAP) Pulse Ox O2 Delivery O2 Flow Rate FiO2 11/05/20 11:44 18 Room Air 11/05/20 11:16 75 135/69 11/05/20 05:48 98.0 95 11/04/20 11:55 3 I&O- Last 24 Hours up to 6 AM 11/05/20 06:00 Intake Total 3250 ml Output Total 50 ml Balance 3200 ml BELLA FOX MD Nov 05, 2020 14:31
--- NOTE | 2020-11-08 10:20 | DSES ---
DISCHARGE SUMMARY DATE OF ADMISSION: 11/04/2020 DATE OF DISCHARGE: 11/05/2020 ATTENDING PHYSICIAN: Michael Cantrell MD ADMITTING DIAGNOSIS: Left knee degenerative arthritis. OTHER DIAGNOSES: Hypertension, gastroesophageal reflux disease, hyperlipidemia. DISCHARGE DIAGNOSIS: Left knee degenerative arthritis; left total knee arthroplasty. HISTORY: Patient is a 70-year-old female with progressively worsening left knee pain and stiffness. She failed to improve with conservative measures. She continued to have symptoms with weightbearing activities and activities of daily living. She consented for an elective left total knee arthroplasty with Dr. Cantrell for her continued symptoms. OPERATION PERFORMED: Left total knee arthroplasty. HOSPITAL COURSE: The patient underwent a left total knee arthroplasty under spinal anesthesia with femoral nerve block. Surgery was uneventful and her hospital course was without complication. She was up with physical therapy per their protocol, weightbearing as tolerated on the left lower extremity. Patient was discharged on oral pain medications and will resume her preoperative medications and diet. The patient will take her anticoagulant and use her thromboembolic deterrent stockings as directed to prevent deep venous thrombosis. The patient will follow-up in our office in 12-14 days for a wound check and staple removal. She is encouraged to contact our office sooner if there is any increase in pain, redness, drainage, numbness or tingling in the extremity, fever greater than 101 degrees or any other concerns. Please see medical record for additional details.
== END 2020-11-05 15:35 | disposition home or self-care (01) | DRG 470 ==
LOC: M OR 09:11 → M MS5PR 15:35
PROVIDERS: ADMIT Orthopaedic Surgery; ATTEND Orthopaedic Surgery
PROC: 0SRD0J9 Replacement of Left Knee Joint with Synthetic Substitute, Cemented, Open Approach (ICD-10-PCS; principal; 2020-11-04 12:30)
DX: M17.12 Unilateral primary osteoarthritis, left knee (principal); I10 Essential (primary) hypertension; K21.9 Gastro-esophageal reflux disease without esophagitis; E78.5 Hyperlipidemia, unspecified; R26.89 Other abnormalities of gait and mobility; Z79.899 Other long term (current) drug therapy; Z96.651 Presence of right artificial knee joint; Z91.040 Latex allergy status; M62.81 Muscle weakness (generalized)

== ENCOUNTER → 2021-10-11 | Outpatient (CLI) | payer MEDICARE, BC, OTHER ==
[~2021-10-11] MED LIST changes: -ACETAMINOPHEN 500 MG TAB PO ONE; +ECOT81TA5 PO; -LR 1,000 ML IV ONE; +OMEP40CA4 PO; -OMEP40CA97 PO; -ceFAZolin SOD 2 GM in IV 1 EA IV ONE
[2021-10-11 16:23] LABS: BASO % 0.5 % (0.0-1.0); EOS # 0.1 10^3/uL (0.0-0.5); EOS % 1.6 % (0.0-3.0); HEMATOCRIT 41.3 % (36.0-47.0); HEMOGLOBIN 13.3 g/dl (12.0-15.5); LYMPH % 35.2 % (24.0-44.0); MEAN CORPUSCULAR HEMOGLOBIN 26.6 pg (27.0-33.0); MEAN CORPUSCULAR HGB CONC 32.2 g/dl (32.0-36.5); MEAN CORPUSCULAR VOLUME 82.6 fl (80.0-96.0); MONO # 0.5 10^3/uL (0.0-0.8); MONO % 8.7 % (2.0-8.0); NEUTROPHILS # 3.1 10^3/uL (1.5-8.5); NEUTROPHILS % 53.8 % (36.0-66.0); PLATELET COUNT, AUTOMATED 235 10^3/uL (150-450); WHITE BLOOD COUNT 5.7 10^3/uL (4.0-10.0)
[2021-10-11 16:53] LABS: ALBUMIN 4.1 GM/DL (3.2-5.2); BILIRUBIN,TOTAL 0.4 MG/DL (0.2-1.0); CALCIUM LEVEL 9.5 MG/DL (8.8-10.2); CREATININE FOR GFR 1.05 MG/DL (0.55-1.30); POTASSIUM SERUM 3.9 MEQ/L (3.5-5.1)
== END ==
LOC: M WUC 14:52
PROVIDERS: ATTEND Physician Assistant
DX: R10.10 Upper abdominal pain, unspecified (principal)

== ENCOUNTER → 2022-03-06 | Outpatient (CLI) | payer MEDICARE, BC, OTHER ==
[~2022-03-06] MED LIST changes: -D31000TA2 PO; +VITA100093 PO
[2022-03-06 13:52] LABS: BASO % 0.7 % (0.0-1.0); EOS # 0.1 10^3/uL (0.0-0.5); EOS % 1.7 % (0.0-3.0); HEMOGLOBIN 12.7 g/dl (12.0-15.5); LYMPH # 1.5 10^3/uL (1.5-5.0); LYMPH % 35.7 % (24.0-44.0); MEAN CORPUSCULAR HEMOGLOBIN 27.4 pg (27.0-33.0); MEAN CORPUSCULAR HGB CONC 32.6 g/dl (32.0-36.5); MEAN CORPUSCULAR VOLUME 84.2 fl (80.0-96.0); MONO # 0.4 10^3/uL (0.0-0.8); MONO % 9.9 % (2.0-8.0); NEUTROPHILS # 2.1 10^3/uL (1.5-8.5); NEUTROPHILS % 51.8 % (36.0-66.0); PLATELET COUNT, AUTOMATED 199 10^3/uL (150-450); RED BLOOD COUNT 4.63 10^6/uL (4.00-5.40); WHITE BLOOD COUNT 4.1 10^3/uL (4.0-10.0)
[2022-03-06 14:36] LABS: ALBUMIN 3.8 GM/DL (3.2-5.2); BILIRUBIN,TOTAL 0.5 MG/DL (0.2-1.0); CALCIUM LEVEL 9.4 MG/DL (8.8-10.2); CREATININE FOR GFR 1.03 MG/DL (0.55-1.30); GLOMERULAR FILTRATION RATE 56.2 (>39); POTASSIUM SERUM 5.1 MEQ/L (3.5-5.1); THYROID STIMULATING HORMONE 2.44 uIU/ML (0.358-3.740); TOTAL PROTEIN 6.5 GM/DL (6.4-8.2)
== END ==
LOC: M PLALAB 10:13
PROVIDERS: ATTEND Family Medicine
DX: R53.81 Other malaise (principal)

== ENCOUNTER → 2022-03-07 | Outpatient (CLI) | payer MEDICARE, BC, OTHER | LOC: M LABSMTC 10:23 | PROVIDERS: ATTEND Pediatrics | DX: Z11.52 Encounter for screening for COVID-19 (principal) | CPT/HCPCS: 87426; C9803 ==

== ENCOUNTER 2022-03-21 13:55 | Emergency (ER) | payer MEDICARE, BC, OTHER ==
[~2022-03-21] VITALS: Ht 160 cm; Wt 78.1 kg
[2022-03-21 13:56] VITALS: BP 173/82
[2022-03-21] MEDS ORDERED: CLAR10CA3 PO (14:05)
[2022-03-21] MEDS ORDERED: METO1TAB7 (14:05)
[2022-03-21] MEDS ORDERED: PREM0.3T2 (14:05)
[2022-03-21 15:16] LABS: BASO % 0.7 % (0.0-1.0); EOS # 0.1 10^3/uL (0.0-0.5); EOS % 1.7 % (0.0-3.0); HEMATOCRIT 39.3 % (36.0-47.0); HEMOGLOBIN 13.2 g/dl (12.0-15.5); LYMPH # 1.5 10^3/uL (1.5-5.0); LYMPH % 36.1 % (24.0-44.0); MEAN CORPUSCULAR HEMOGLOBIN 27.9 pg (27.0-33.0); MEAN CORPUSCULAR HGB CONC 33.6 g/dl (32.0-36.5); MEAN CORPUSCULAR VOLUME 83.1 fl (80.0-96.0); MONO # 0.5 10^3/uL (0.0-0.8); MONO % 11.9 % (2.0-8.0); NEUTROPHILS % 49.4 % (36.0-66.0); PLATELET COUNT, AUTOMATED 196 10^3/uL (150-450); RED BLOOD COUNT 4.73 10^6/uL (4.00-5.40)
[2022-03-21 15:39] LABS: CK-MB VALUE MASS < 1.0 NG/ML (<3.6); CPK CREATINE PHOSPHOKINASE 35 U/L (26-192); MB/CK RELATIVE INDEX 2.86 (< OR =4)
[2022-03-21 15:40] LABS: ALBUMIN 3.8 GM/DL (3.2-5.2); BILIRUBIN,DIRECT 0.2 MG/DL (0.0-0.2); BILIRUBIN,TOTAL 0.6 MG/DL (0.2-1.0); CALCIUM LEVEL 9.9 MG/DL (8.8-10.2); GLOMERULAR FILTRATION RATE 58.2 (>39); POTASSIUM SERUM 3.7 MEQ/L (3.5-5.1); TOTAL PROTEIN 6.7 GM/DL (6.4-8.2)
[2022-03-21] MEDS ORDERED: HYDR-3713 PO (17:15)
[2022-03-21] MEDS ORDERED: ONDA4TAB6 PO (17:15)
== END 2022-03-21 17:32 | disposition home or self-care (01) ==
LOC: M ED 13:55
DX: K80.70 Calculus of gallbladder and bile duct without cholecystitis without obstruction (principal); I10 Essential (primary) hypertension; E78.5 Hyperlipidemia, unspecified; K21.9 Gastro-esophageal reflux disease without esophagitis; Z91.040 Latex allergy status; Z79.899 Other long term (current) drug therapy; Z79.818 Long term (current) use of other agents affecting estrogen receptors and estrogen levels

== ENCOUNTER → 2022-04-09 | Outpatient (CLI) | payer MEDICARE, BC, OTHER ==
[~2022-04-09] MED LIST changes: +CLAR10CA3 PO; +HYDR-3713 PO; +METO1TAB7; +ONDA4TAB6 PO; +PREM0.3T2
[2022-04-09 13:53] LABS: BASO % 0.5 % (0.0-1.0); EOS # 0.1 10^3/uL (0.0-0.5); EOS % 2.1 % (0.0-3.0); HEMATOCRIT 42.8 % (36.0-47.0); HEMOGLOBIN 13.9 g/dl (12.0-15.5); LYMPH # 1.7 10^3/uL (1.5-5.0); LYMPH % 29.8 % (24.0-44.0); MEAN CORPUSCULAR HEMOGLOBIN 26.6 pg (27.0-33.0); MEAN CORPUSCULAR HGB CONC 32.5 g/dl (32.0-36.5); MONO # 0.5 10^3/uL (0.0-0.8); MONO % 9.5 % (2.0-8.0); NEUTROPHILS # 3.3 10^3/uL (1.5-8.5); NEUTROPHILS % 57.7 % (36.0-66.0); PLATELET COUNT, AUTOMATED 199 10^3/uL (150-450); RED BLOOD COUNT 5.22 10^6/uL (4.00-5.40); WHITE BLOOD COUNT 5.7 10^3/uL (4.0-10.0)
[2022-04-09 14:22] LABS: ALBUMIN 3.8 GM/DL (3.2-5.2); ALT/SGPT 34 U/L (12-78); BILIRUBIN,TOTAL 0.4 MG/DL (0.2-1.0); BLOOD UREA NITROGEN 16 MG/DL (7-18); CALCIUM LEVEL 9.5 MG/DL (8.8-10.2); CARBON DIOXIDE LEVEL 28 MEQ/L (21-32); CHLORIDE LEVEL 109 MEQ/L (98-107); CREATININE FOR GFR 0.94 MG/DL (0.55-1.30); GLOMERULAR FILTRATION RATE > 60.0 (>39); GLUCOSE, FASTING 93 MG/DL (70-100); POTASSIUM SERUM 5.3 MEQ/L (3.5-5.1); SODIUM LEVEL 143 MEQ/L (136-145); TOTAL PROTEIN 6.5 GM/DL (6.4-8.2)
== END ==
LOC: M PLALAB 09:28
PROVIDERS: ATTEND Family Medicine
DX: Z01.818 Encounter for other preprocedural examination (principal)

== ENCOUNTER → 2022-04-29 | Outpatient (CLI) | payer MEDICARE, BC, OTHER ==
[~2022-04-29] MED LIST changes: +CALC600T60 PO; +CVS-161 PO; +FISH1000 PO; +RA M500C PO; +VITA400C56 PO; +VITMTA PO
== END ==
LOC: M LABSMTC 09:40
PROVIDERS: ATTEND Anesthesiology
DX: Z01.818 Encounter for other preprocedural examination (principal); Z11.52 Encounter for screening for COVID-19

== ENCOUNTER → 2022-05-21 | Outpatient (CLI) | payer MEDICARE, BC, OTHER ==
[2022-05-21 11:34] LABS: BASO % 0.7 % (0.0-1.0); EOS # 0.1 10^3/uL (0.0-0.5); EOS % 2.5 % (0.0-3.0); HEMATOCRIT 40.2 % (36.0-47.0); HEMOGLOBIN 13.2 g/dl (12.0-15.5); LYMPH # 1.3 10^3/uL (1.5-5.0); LYMPH % 30.7 % (24.0-44.0); MEAN CORPUSCULAR HEMOGLOBIN 27.2 pg (27.0-33.0); MEAN CORPUSCULAR HGB CONC 32.8 g/dl (32.0-36.5); MEAN CORPUSCULAR VOLUME 82.9 fl (80.0-96.0); MONO # 0.6 10^3/uL (0.0-0.8); MONO % 12.7 % (2.0-8.0); NEUTROPHILS # 2.3 10^3/uL (1.5-8.5); NEUTROPHILS % 53.2 % (36.0-66.0); PLATELET COUNT, AUTOMATED 192 10^3/uL (150-450); RED BLOOD COUNT 4.85 10^6/uL (4.00-5.40); WHITE BLOOD COUNT 4.3 10^3/uL (4.0-10.0)
[2022-05-21 12:03] LABS: ALBUMIN 3.6 GM/DL (3.2-5.2); ALT/SGPT 42 U/L (12-78); BILIRUBIN,TOTAL 0.7 MG/DL (0.2-1.0); BLOOD UREA NITROGEN 14 MG/DL (7-18); CALCIUM LEVEL 9.1 MG/DL (8.8-10.2); CARBON DIOXIDE LEVEL 28 MEQ/L (21-32); CHLORIDE LEVEL 105 MEQ/L (98-107); CREATININE FOR GFR 0.95 MG/DL (0.55-1.30); GLOMERULAR FILTRATION RATE > 60.0 (>39); GLUCOSE, FASTING 100 MG/DL (70-100); POTASSIUM SERUM 4.1 MEQ/L (3.5-5.1); SODIUM LEVEL 138 MEQ/L (136-145); TOTAL PROTEIN 6.6 GM/DL (6.4-8.2)
== END ==
LOC: M PLALAB 08:40
PROVIDERS: ATTEND Family Medicine
DX: Z01.818 Encounter for other preprocedural examination (principal)

== ENCOUNTER → 2022-05-27 | Outpatient (CLI) | payer MEDICARE, BC, OTHER | LOC: M LABSMTC 09:32 | PROVIDERS: ATTEND Anesthesiology | DX: Z01.812 Encounter for preprocedural laboratory examination (principal) ==

== ENCOUNTER → 2022-12-18 | Outpatient (CLI) | payer MEDICARE, BC, OTHER ==
[2022-12-18 13:48] LABS: THYROGLOBULIN ANTIBODY < 15.0 U/ML (<60.0); THYROID STIMULATING HORMONE 3.381 uIU/ML (0.55-4.78)
[2022-12-18 13:49] LABS: THYROID PEROXIDASE ANTIBODY < 28.0 U/ML (<60.0)
[2022-12-18 13:50] LABS: FREE T3 2.9 PG/ML (2.3-4.2)
[2022-12-18 13:51] LABS: FREE T4 0.99 NG/DL (0.89-1.76)
== END ==
LOC: M PLALAB 09:52
PROVIDERS: ATTEND Family Medicine
DX: E07.9 Disorder of thyroid, unspecified (principal)

== ENCOUNTER → 2022-12-27 | Outpatient (CLI) | payer MEDICARE, BC, OTHER ==
[2022-12-27 14:22] LABS: HEMOGLOBIN A1c 5.4 % (4.0-6.0)
[2022-12-27 14:41] LABS: CPK CREATINE PHOSPHOKINASE 21 U/L (34-145); RHEUMATOID FACTOR QUANT < 3.5 IU/ML (<14)
[2022-12-27 14:43] LABS: FOLATE > 24.0 NG/ML (>5.4)
[2022-12-27 14:44] LABS: VITAMIN B12 LEVEL 392 PG/ML (211-911)
== END ==
LOC: M PLALAB 10:05
PROVIDERS: ATTEND Psychiatry & Neurology Neurology
DX: E53.8 Deficiency of other specified B group vitamins (principal); E83.01 Wilson's disease; G70.00 Myasthenia gravis without (acute) exacerbation; M62.81 Muscle weakness (generalized); E11.9 Type 2 diabetes mellitus without complications; Z11.3 Encounter for screening for infections with a predominantly sexual mode of transmission

== ENCOUNTER → 2022-12-31 | Outpatient (CLI) | payer MEDICARE, BC, OTHER | LOC: M WUC 11:15 | PROVIDERS: ATTEND Physician Assistant | DX: S23.41XA Sprain of ribs, initial encounter (principal); R06.00 Dyspnea, unspecified; W18.30XA Fall on same level, unspecified, initial encounter; Y92.009 Unspecified place in unspecified non-institutional (private) residence as the place of occurrence of the external cause ==

== ENCOUNTER → 2023-07-26 | Outpatient (CLI) | payer MEDICARE, BC, OTHER ==
[2023-07-26 14:07] LABS: BASO % 1.1 % (0.0-1.0); EOS # 0.1 10^3/uL (0.0-0.5); EOS % 1.4 % (0.0-3.0); HEMATOCRIT 40.2 % (36.0-47.0); HEMOGLOBIN 12.9 g/dl (12.0-15.5); LYMPH # 1.1 10^3/uL (1.5-5.0); LYMPH % 32.4 % (24.0-44.0); MEAN CORPUSCULAR HEMOGLOBIN 27.2 pg (27.0-33.0); MEAN CORPUSCULAR HGB CONC 32.1 g/dl (32.0-36.5); MEAN CORPUSCULAR VOLUME 84.8 fl (80.0-96.0); MONO # 0.4 10^3/uL (0.0-0.8); MONO % 11.5 % (2.0-8.0); NEUTROPHILS # 1.9 10^3/uL (1.5-8.5); NEUTROPHILS % 53.6 % (36.0-66.0); PLATELET COUNT, AUTOMATED 202 10^3/uL (150-450); RED BLOOD COUNT 4.74 10^6/uL (4.00-5.40); WHITE BLOOD COUNT 3.5 10^3/uL (4.0-10.0)
[2023-07-26 14:34] LABS: BILIRUBIN,TOTAL 0.7 MG/DL (0.3-1.2); CALCIUM LEVEL 9.9 MG/DL (8.3-10.6); CHOLESTEROL RISK RATIO 3.4 (<5); CREATININE FOR GFR 1.02 MG/DL (0.55-1.30); GLOMERULAR FILTRATION RATE 56.6 (>39); HDL CHOLESTEROL 48.8 MG/DL (>40); LDL CHOLESTEROL 80.4 MG/DL (<100); NON-HDL-C 117.2 MG/DL; POTASSIUM SERUM 4.4 MMOL/L (3.5-5.1); TOTAL PROTEIN 6.6 G/DL (5.7-8.2)
[2023-07-26 14:36] LABS: TOTAL 25(OH) VITAMIN D 64.2 NG/ML (20.0-100.0)
== END ==
LOC: M PLALAB 09:38
PROVIDERS: ATTEND Family Medicine
DX: I10 Essential (primary) hypertension (principal)

== ENCOUNTER 2023-12-18 11:37 | Day surgery (SDC) | payer MEDICARE, BC, OTHER ==
[~2023-12-18] VITALS: Ht 160 cm; Wt 75.3 kg
[~2023-12-18 11:37] MED LIST changes: -BIOT50004 PO; +BIOT5CAP8 PO; +METO1TAB32 PO; +OMEG10002 PO; +VITA-16 PO
[2023-12-18] MEDS: NS 1,000 ML IV ONE (12:47)
[2023-12-18] MEDS ORDERED: propofoL 200 MG/20 ML VIAL As Ordered ONE (13:40)
[2023-12-18] MEDS ORDERED: LIDOCAINE 2% 100MG/5ML SDV (FOR ANES.) As Ordered ONE (13:40)
[2023-12-18] MEDS ORDERED: ONDANSETRON 4MG 2ML VIAL As Ordered ONE (13:51)
[2023-12-18] MEDS ORDERED: fentaNYL 100 MCG/2 ML INJECTION As Ordered ONE (13:51)
[2023-12-18 14:34] VITALS: TEMP 97.6
[2023-12-18 14:55] VITALS: BP 144/67; O2SAT 97
== END 2023-12-18 15:14 | disposition home or self-care (01) ==
LOC: M OPP 11:37
PROVIDERS: ATTEND Internal Medicine Gastroenterology
DX: Z12.11 Encounter for screening for malignant neoplasm of colon (principal); D12.8 Benign neoplasm of rectum; K64.0 First degree hemorrhoids; K29.50 Unspecified chronic gastritis without bleeding; K44.9 Diaphragmatic hernia without obstruction or gangrene; K31.7 Polyp of stomach and duodenum; Z86.010 Personal history of colon polyps; Z80.0 Family history of malignant neoplasm of digestive organs
CPT/HCPCS: 43239; 45380; 45385; 88305; J2405; J3010

== ENCOUNTER → 2024-08-24 | Outpatient (CLI) | payer MEDICARE, BC ==
[~2024-08-24] MED LIST changes: +ONDA-282 PO; -ONDA4TAB6 PO
[2024-08-24 15:13] LABS: BASO % 0.8 % (0.0-1.0); EOS # 0.1 10^3/uL (0.0-0.5); EOS % 1.5 % (0.0-3.0); HEMATOCRIT 40.8 % (36.0-47.0); HEMOGLOBIN 13.7 g/dl (12.0-15.5); LYMPH % 38.2 % (24.0-44.0); MEAN CORPUSCULAR HEMOGLOBIN 27.8 pg (27.0-33.0); MEAN CORPUSCULAR HGB CONC 33.6 g/dl (32.0-36.5); MEAN CORPUSCULAR VOLUME 82.9 fl (80.0-96.0); MONO # 0.6 10^3/uL (0.0-0.8); MONO % 11.1 % (2.0-8.0); NEUTROPHILS # 2.5 10^3/uL (1.5-8.5); NEUTROPHILS % 48.2 % (36.0-66.0); PLATELET COUNT, AUTOMATED 249 10^3/uL (150-450); RED BLOOD COUNT 4.92 10^6/uL (4.00-5.40); WHITE BLOOD COUNT 5.2 10^3/uL (4.0-10.0)
[2024-08-24 15:37] LABS: ALBUMIN 3.9 G/DL (3.2-5.2); ALKALINE PHOSPHATASE 87 U/L (35-104); ALT/SGPT 26 U/L (7.0-40); AST/SGOT 19 U/L (<34); BILIRUBIN,TOTAL 0.4 MG/DL (0.3-1.2); BLOOD UREA NITROGEN 18 MG/DL (9-23); CALCIUM LEVEL 10.3 MG/DL (8.3-10.6); CARBON DIOXIDE LEVEL 28 MMOL/L (20-31); CHLORIDE LEVEL 105 MMOL/L (98-107); CHOLESTEROL LEVEL 188 MG/DL (<200); CHOLESTEROL RISK RATIO 3.68 (<5); CREATININE FOR GFR 0.94 MG/DL (0.55-1.30); GLOMERULAR FILTRATION RATE > 60.0 (>39); GLUCOSE, FASTING 90 MG/DL (74-106); LDL CHOLESTEROL 57.6 MG/DL (<100); POTASSIUM SERUM 4.1 MMOL/L (3.5-5.1); SODIUM LEVEL 140 MMOL/L (136-145); TOTAL PROTEIN 7.1 G/DL (5.7-8.2); TRIGLYCERIDES LEVEL 397 MG/DL (<150)
[2024-08-24 15:39] LABS: TOTAL 25(OH) VITAMIN D 45.6 NG/ML (20.0-100.0)
== END ==
LOC: M PLALAB 11:54
PROVIDERS: ATTEND Family Medicine
DX: E55.9 Vitamin D deficiency, unspecified (principal); I10 Essential (primary) hypertension

== ENCOUNTER → 2024-10-23 | Outpatient (CLI) | payer MEDICARE, BC ==
[2024-10-23 15:07] LABS: C REACTIVE PROTEIN QUANTITATIV < 0.50 MG/DL (<1.0)
[2024-10-23 15:08] LABS: RHEUMATOID FACTOR QUANT 5.3 IU/ML (<14)
[2024-10-23 15:09] LABS: THYROID STIMULATING HORMONE 3.292 uIU/ML (0.55-4.78)
[2024-10-26 13:13] LABS: ANA SCREEN, IFA NEGATIVE (NEGATIVE)
[2024-10-26 16:37] LABS: CYCLIC CITRULLINATED PEPTIDE < 16 UNITS (<20)
[2024-10-26 18:32] LABS: IgG P18 AB NON-REACTIVE; IgG P23 AB NON-REACTIVE; IgG P28 AB NON-REACTIVE; IgG P30 AB NON-REACTIVE; IgG P39 AB NON-REACTIVE; IgG P41 AB REACTIVE; IgG P45 AB NON-REACTIVE; IgG P58 AB NON-REACTIVE; IgG P66 AB NON-REACTIVE; IgG P93 AB NON-REACTIVE; IgM P23 AB NON-REACTIVE; IgM P39 AB NON-REACTIVE; IgM P41 AB NON-REACTIVE; LYME IgG WB INTERPRETATION NEGATIVE (NEGATIVE); LYME IgM WB INTERPRETATION NEGATIVE (NEGATIVE)
[2024-10-27 14:13] LABS: LYME TOTAL ANTIBODY CIA <= 0.90 Index (<=0.90)
== END ==
LOC: M PLALAB 09:24
PROVIDERS: ATTEND Family Medicine
DX: M25.50 Pain in unspecified joint (principal); R25.1 Tremor, unspecified

== ENCOUNTER → 2024-11-03 | Outpatient (CLI) | payer MEDICARE, BC ==
[2024-11-03 15:04] LABS: CORTISOL AM 7.3 UG/DL (4.3-22.4)
[2024-11-03 15:08] LABS: FOLLICLE STIMULATING HORMONE 38.2 mIU/ML
[2024-11-03 15:09] LABS: ESTRADIOL < 19.0 PG/ML; LUTEINIZING HORMONE 18.6 mIU/ML
[2024-11-03 15:12] LABS: PROGESTERONE 0.22 NG/ML
[2024-11-05 02:07] LABS: SEX HORMONE BINDING GLOBULIN 59 nmol/L (14-73)
== END ==
LOC: M PLALAB 11:18
PROVIDERS: ATTEND Obstetrics & Gynecology
DX: N95.1 Menopausal and female climacteric states (principal)

== ENCOUNTER → 2025-01-20 | Outpatient (CLI) | payer MEDICARE, BC ==
[2025-01-20 15:45] LABS: BASO # 0.1 10^3/uL (0.0-0.2); EOS # 0.1 10^3/uL (0.0-0.5); EOS % 1.6 % (0.0-3.0); HEMATOCRIT 43.2 % (36.0-47.0); HEMOGLOBIN 14.1 g/dl (12.0-15.5); LYMPH % 39.6 % (24.0-44.0); MEAN CORPUSCULAR HEMOGLOBIN 26.7 pg (27.0-33.0); MEAN CORPUSCULAR HGB CONC 32.6 g/dl (32.0-36.5); MEAN CORPUSCULAR VOLUME 81.8 fl (80.0-96.0); MONO # 0.6 10^3/uL (0.0-0.8); MONO % 11.1 % (2.0-8.0); NEUTROPHILS # 2.3 10^3/uL (1.5-8.5); NEUTROPHILS % 46.5 % (36.0-66.0); PLATELET COUNT, AUTOMATED 227 10^3/uL (150-450); RED BLOOD COUNT 5.28 10^6/uL (4.00-5.40)
[2025-01-20 16:16] LABS: ALBUMIN 4.1 G/DL (3.2-5.2); ALKALINE PHOSPHATASE 75 U/L (35-104); ALT/SGPT 21 U/L (7.0-40); AST/SGOT 16 U/L (<34); BILIRUBIN,TOTAL 0.4 MG/DL (0.3-1.2); BLOOD UREA NITROGEN 15 MG/DL (9-23); CALCIUM LEVEL 10.2 MG/DL (8.3-10.6); CARBON DIOXIDE LEVEL 28 MMOL/L (20-31); CHLORIDE LEVEL 107 MMOL/L (98-107); CREATININE FOR GFR 0.83 MG/DL (0.55-1.30); GLOMERULAR FILTRATION RATE > 60.0 (>39); GLUCOSE, FASTING 76 MG/DL (74-106); POTASSIUM SERUM 4.2 MMOL/L (3.5-5.1); SODIUM LEVEL 143 MMOL/L (136-145)
== END ==
LOC: M PLALAB 11:35
PROVIDERS: ATTEND Internal Medicine Cardiovascular Disease
DX: I10 Essential (primary) hypertension (principal)

== ENCOUNTER → 2025-03-03 | Outpatient (REF) | payer MEDICARE, BC ==
[2025-03-03 17:42] LABS: APPEARANCE, URINE CLEAR (CLEAR); BACTERIA, URINE AUTO 1+ (NEGATIVE); BILIRUBIN, URINE AUTO NEGATIVE (NEGATIVE); BLOOD, URINE BLOOD NEGATIVE (NEGATIVE); COLOR, URINE YELLOW (YELLOW); GLUCOSE, URINE (UA) AUTO NEGATIVE (NEGATIVE); KETONE, URINE AUTO NEGATIVE (NEGATIVE); LEUKOCYTE ESTERASE, URINE AUTO TRACE (NEGATIVE); NITRITE, URINE AUTO NEGATIVE (NEGATIVE); PROTEIN, URINE AUTO NEGATIVE (NEGATIVE); RBC, URINE AUTO 0 /HPF (0-3); SPECIFIC GRAVITY URINE AUTO 1.008 (1.002-1.035); SQUAMOUS EPITHELIAL CELL UR AU 1 /HPF (0-6); UROBILINOGEN, URINE AUTO 0.2 mg/dL (0.0-2.0); WBC, URINE AUTO 1 /HPF (0-3)
== END ==
LOC: M LAB REF 16:55
PROVIDERS: ATTEND Family Medicine
DX: R30.0 Dysuria (principal)

== ENCOUNTER → 2025-07-13 | Outpatient (CLI) | payer MEDICARE, BC ==
[2025-07-13 19:16] LABS: FREE T4 1.1 NG/DL (0.89-1.76)
[2025-07-13 19:20] LABS: IRON (FE) 136.0 UG/DL (50-170)
[2025-07-13 19:21] LABS: PERCENT SATURATION 41.0 % (13.2-45.0)
== END ==
LOC: M PLALAB 12:52
PROVIDERS: ATTEND Dermatology
DX: L63.8 Other alopecia areata (principal)

== ENCOUNTER → 2025-09-06 | Outpatient (CLI) | payer MEDICARE, BC ==
[2025-09-06 11:43] LABS: BASO # 0.0 10^3/uL (0.0-0.2); BASO % 0.7 % (0.0-1.0); EOS # 0.1 10^3/uL (0.0-0.5); EOS % 1.9 % (0.0-3.0); LYMPH # 1.6 10^3/uL (1.5-5.0); LYMPH % 28.1 % (24.0-44.0); MONO # 0.5 10^3/uL (0.0-0.8); MONO % 8.4 % (2.0-8.0); NEUTROPHILS # 3.5 10^3/uL (1.5-8.5); NEUTROPHILS % 60.6 % (36.0-66.0); PLATELET COUNT, AUTOMATED 224 10^3/uL (150-450)
[2025-09-06 12:27] LABS: ALT/SGPT 21.0 U/L (7.0-40); AST/SGOT 22.0 U/L (<34); CALCIUM LEVEL 9.7 MG/DL (8.3-10.6); CARBON DIOXIDE LEVEL 29.0 MMOL/L (20-31); CHLORIDE LEVEL 104.0 MMOL/L (98-107); CHOLESTEROL LEVEL 235.0 MG/DL (<200); CHOLESTEROL RISK RATIO 4.04 (<5); CREATININE FOR GFR 0.9 MG/DL (0.55-1.30); GLOMERULAR FILTRATION RATE 66.7 (>39); LDL CHOLESTEROL 134.5 MG/DL (<100); NON-HDL-C 176.9 MG/DL; POTASSIUM SERUM 5.0 MMOL/L (3.5-5.1); SODIUM LEVEL 144.0 MMOL/L (136-145); TOTAL 25(OH) VITAMIN D 55.8 NG/ML (20.0-100.0); TRIGLYCERIDES LEVEL 212.0 MG/DL (<150)
== END ==
LOC: M PLALAB 09:11
PROVIDERS: ATTEND Family Medicine
DX: E55.9 Vitamin D deficiency, unspecified (principal); E78.5 Hyperlipidemia, unspecified